=== PATIENT | male | born 1970 | race Two or more races ===

== ENCOUNTER 2019-09-19 04:45 | Inpatient (IN) | payer MEDICAID ==
[~2019-09-19] VITALS: Ht 154.9 cm; Wt 59.0 kg
[2019-09-19] MEDS ORDERED: LACT-96 GT (09:08)
[2019-09-19] MEDS ORDERED: ACET-868 GT ×2 (09:08)
[2019-09-19] MEDS ORDERED: OMEP-293 GT (09:08)
[2019-09-19] MEDS ORDERED: NA P133E RC (09:08)
[2019-09-19] MEDS ORDERED: ATOR10TA GT (09:08)
[2019-09-19] MEDS ORDERED: DOCU50LI GT (09:08)
[2019-09-19] MEDS ORDERED: LEVE100S GT (09:08)
[2019-09-19] MEDS ORDERED: SACC250C GT (09:08)
[2019-09-19] MEDS ORDERED: LORA10TA7 GT (09:08)
[2019-09-19] MEDS ORDERED: PIPE3.376 IV (09:08)
[2019-09-19] MEDS ORDERED: CALC500T52 GT (09:08)
[2019-09-19] MEDS ORDERED: METO25TA20 GT (09:08)
[2019-09-19] MEDS ORDERED: MAGN400O6 GT (09:08)
[2019-09-19] MEDS ORDERED: VIT500LI GT (09:08)
[2019-09-19] MEDS ORDERED: PANT40SU2 GT (09:08)
[2019-09-19] MEDS ORDERED: ACET-2605 GT (09:08)
[2019-09-19] MEDS ORDERED: ALBU2.5V38 IH (09:08)
[2019-09-19] MEDS ORDERED: MULT-447 GT (09:08)
[2019-09-19] MEDS ORDERED: FERR300L GT (09:08)
[2019-09-19] MEDS ORDERED: FOLI0.8T GT (09:08)
[2019-09-19] MEDS ORDERED: CHLO473M5 MM (09:08)
[2019-09-19] MEDS ORDERED: BISA10SU11 RC (09:08)
[2019-09-19] MEDS ORDERED: IPRA3AMP23 IH (09:08)
--- NOTE | 2019-09-19 09:40 | NUR ---
DR CANTU AT BEDSIDE
--- NOTE | 2019-09-19 09:48 | NUR ---
ROOM 311-1 NURSE: LEWIS
[2019-09-19] MEDS ORDERED: MAG HYDROX/AL HYDROX/SIMETH 30 ML UDC PO PRN (10:00)
[2019-09-19] MEDS ORDERED: MAGNESIUM HYDROXIDE 30 ML UDC PO PRN (10:00)
[2019-09-19] MEDS ORDERED: BISACODYL SUPP (10 MG) 10 MG/SUPP.RECT SUPP.RECT RC PRN (10:00)
[2019-09-19] MEDS ORDERED: ONDANSETRON HCL/PF 4 MG/2 ML VIAL IVP PRN (10:00)
[2019-09-19] MEDS ORDERED: ZOLPIDEM TARTRATE 5 MG TABLET PO PRN (10:00)
[2019-09-19] MEDS ORDERED: ALBUTEROL FS 2.5 MG/3 ML VIAL.NEB IH PRN (10:00)
[2019-09-19] MEDS ORDERED: IPRATROPIUM NEB FS 0.5 MG/2.5 ML AMPUL.NEB NEB PRN (10:00)
[2019-09-19] MEDS ORDERED: ACETAMINOPHEN 325 MG TABLET PO PRN (10:00)
[2019-09-19] MEDS ORDERED: Z GUARD REMEDY 2 OZ OINT TP PRN (10:00)
[2019-09-19] MEDS ORDERED: HYDROCODONE/APAP 5/325MG 1 EACH TABLET PO PRN (10:00)
[2019-09-19 10:09] LABS: APPEARANCE,URINE SLIGHTLY CLOUDY (CLEAR); COLOR,URINE YELLOW (YELLOW)
[2019-09-19 10:10] LABS: BILIRUBIN,URINE NEGATIVE (NEGATIVE); BLOOD, URINE TRACE Ery/uL (NEGATIVE); KETONES,URINE NEGATIVE (NEGATIVE); LEUKOCYTE ESTERASE ,URINE TRACE (NEGATIVE); NITRITE, URINE NEGATIVE (NEGATIVE); PROTEIN,URINE TRACE mg/dl (NEGATIVE); UGLUCOSE NEGATIVE (NEGATIVE); UROBILINOGEN,URINE 0.2 EU/dL (0.2)
[2019-09-19 10:11] LABS: BACTERIA,URINE None seen /HPF (None Seen); RBC,URINE 0-3 /HPF (0-2); SQUAMOUS EPITHELIAL CELL,UR None Seen /HPF (None Seen); WBC,URINE 15-20 /HPF (0-3); YEAST,URINE Many /HPF (None Seen)
--- NOTE | 2019-09-19 10:21 | NUR ---
REPORT GIVEN TO LEWIS OF TELE UNIT
[2019-09-19 11:00] LABS: CALCIUM, SERUM 9.2 mg/dL (8.5-10.1); CREATININE 0.9 mg/dL (0.6-1.3); POTASSIUM 3.9 mmol/L (3.5-5.1)
[2019-09-19 11:13] LABS: ALBUMIN 2.5 g/dL (3.4-5.0); BILIRUBIN,TOTAL 0.2 mg/dL (0.2-1.0); TOTAL PROTEIN, SERUM 7.5 g/dL (6.4-8.2)
[2019-09-19 11:31] LABS: BASOPHILS % (AUTO) 1.8 % (0.0-2.0); EOSINOPHILS % (AUTO) 2.1 % (0.0-6.0); HEMATOCRIT 28 % (39-51); HEMOGLOBIN 8.7 g/dL (13.5-17.5); LYMPHOCYTES % (AUTO) 16.1 % (20.0-44.0); MEAN CORPUSCULAR HGB CONC 31 g/dl (31.0-36.0); MEAN CORPUSCULAR VOLUME 90 fL (80-96); MONOCYTES % (AUTO) 6.1 % (2.0-12.0); NEUTROPHILS # (AUTO) 7.8 /CMM (1.8-8.9); NEUTROPHILS % (AUTO) 73.9 % (43.0-81.0); PLATELET COUNT (AUTO) 406 /CMM (150-450); RED BLOOD CELL COUNT(AUTO) 3.07 MIL/uL (4.5-6.0); WHITE BLOOD COUNT (AUTO) 10.6 K/uL (4.3-11.0)
[2019-09-19 11:32] LABS: BASOPHILS # (AUTO) 0.2 /CMM (0.0-0.2); LYMPHOCYTES # (AUTO) 1.7 /CMM (0.8-4.8); MONOCYTES # (AUTO) 0.6 /CMM (0.1-1.30)
[2019-09-19] MEDS ORDERED: FEE PK DOSING 1 MIN EA MC ONE (11:44)
[2019-09-19 12:00] VITALS: BP 103/58
[2019-09-19] MEDS ORDERED: VANCOMYCIN 1 GM in IV D5W 250 ML IV ONE (12:00)
--- NOTE | 2019-09-19 12:00 | NUR ---
rn note received pt on gurney, obtunded, sr 96 on telemetry, on t piece oxygen 5 l/min, rr22, saturation 99%, bp 103/58 mmhg, with thick joyce color secretion upon suction, no fever, g tube clamped, RAC iv intact, left ac iv intact. paul draining yellow urine via gravity. multiple scars and r hip deep wound foul smelly discharge, scrotal and sacral excoriation/MASD, upper and lower extremity contractures. will carry out admitting orders, safety measures.
[2019-09-19] MEDS: FERROUS SULFATE UDC 300 MG/5 ML UDC GT SCH ×2 (12:41→16:53)
[2019-09-19] MEDS: IV NS 0.9% 1,000 ML IV PRN (12:42)
[2019-09-19] MEDS: LEVETIRACETAM SOL (5 ML) 100 MG/ML UDC GT SCH ×2 (12:42→22:47)
[2019-09-19] MEDS ORDERED: MEROPENEM 1 G in IV NS 0.9% 100 ML IV ONE (13:00)
[2019-09-19 14:30] VITALS: BP 113/73
--- NOTE | 2019-09-19 14:30 | NUR ---
rn note around 1415 pt on cool aerosol, 8 l/min, became tachypneic, rr 32-34, shallow breaths, temp 98.0, saturation drops to 85-90%, upon suction it goes up for a while and then drops again, dr alana bradford, he ordered to place pt on mech vent, and do ABG. will carry out and monitor further.
--- NOTE | 2019-09-19 14:50 | NUR ---
RT PLACED PT ON [facility] VENT POST ABG RESULTS PER MD ORDER. TAQUERIA CHIN NOTIFIED AND AWARE. VENT SETTINGS: AC 14, VT 500, 40%, +5. PIPELAYING FITTER DONE. PIPELAYING FITTER DONE. ALARMS ON AND FUNCTIONING PROPERLY. RESPIRATIONS EVEN AND UNLABORED. VENT PLUGGED INTO RED OUTLET. SUCTIONED LARGE AMOUNTS OF THICK, WHITE SECRETIONS. NO SOB OR SIGNS OF DISTRESS NOTED AT THIS TIME. WILL CONTINUE TO MONITOR THE PATIENT CLOSELY FOR ANY CHANGES. Addendum: 09/19/19 at 1811 by YVAN GALVEZ RT Amended: Links added.
[2019-09-19 14:53] LABS: ABG BASE EXCESS 1.3 mmol/L; ABG OXYGEN SATURATION 86.2 % (92.0-98.5); ABG PCO2 49.5 mmHg (35.0-45.0); ABG PH 7.357 (7.350-7.450); ABG PO2 56.4 mmHg (75.0-100.0); AaDO2 171.9 mmHg; COHb 0.2 % (0.5-1.5); MetHb 0.5 % (0.0-1.5); O2Hb 85.6 % (94.0-97.0); SITE, ABG Right Radial; VENT MODE, BG CA 40%
--- NOTE | 2019-09-19 14:55 | NUR ---
rn note ABG resulted and per RT Catarino he will report to dr Rivas. Dr James notified with results. no new orders at this time, pt stable.
[2019-09-19 16:00] VITALS: BP 114/72
[2019-09-19] MEDS: VANCOMYCIN 0.75 GM in IV D5W 250 ML IV SCH (16:51)
[2019-09-19] MEDS: METOPROLOL TARTRATE 25 MG TABLET GT SCH (16:53)
--- NOTE | 2019-09-19 17:42 | NUR ---
rn note per COLLEEN SWAN TO CHANGE MUHAMMAD, AND SEND NEW URINE CULTURE, BUT ACCORDING TO REPORT FROM [facility], MUHAMMAD WAS CHANGED TODAY 09/19/19 BEFORE SENDING THE PT TO [facility]. SPOKE WITH ABUNDIO SWAN, AND TOLD HER THAT, NO NEED TO CHANGE MUHAMMAD.
[2019-09-19] MEDS: JEVITY 1.2 CAL 1,000 ML BOTTLE GT PRN (17:44)
[2019-09-19 20:00] VITALS: BP 94/56
--- NOTE | 2019-09-19 20:15 | NUR ---
RN NOTES RECEIVED PATIENT, EYES OPEN, NO SIGNS OF ACUTE RESPIRATORY DISTRESS NOTED, VENT SETTINGS TOLERATING WELL, NO SIGNS OF PAIN OR DISCOMFORT AT THIS TIME, NO FACIAL GRIMACING NOTED, ASPIRATION PRECAUTION EMPHASIZED, ORAL CARE DONE, SUCTIONED SECRETIONS, REPOSITIONED FOR COMFORT, IV ACCESS INTACT AND PATENT, MU[place] CATHETER INTACT AND PATENT DRAINING TO A YELLOW URINE OUTPUT, NO SEDIMENTS NOTED, KEPT CLEAN AND DRY. ALL NEEDS ANTICIPATED. WILL MONITOR ACCORDINGLY.
[2019-09-19 20:16] VITALS: BP 94/56
[2019-09-19] MEDS: ATORVASTATIN 10 MG TABLET GT SCH (22:47)
[2019-09-19] MEDS: MEROPENEM 1 G in IV NS 0.9% 100 ML IV SCH (22:48)
[2019-09-19] MEDS: CHLORHEXIDINE GLUCONATE 15 ML UDC MM SCH (22:48)
[2019-09-20] VITALS (7 sets, daily range): BP systolic 117–152; BP diastolic 63–76
[2019-09-20] MEDS: VANCOMYCIN 0.75 GM in IV D5W 250 ML IV SCH ×3 (00:01→16:10)
[2019-09-20] MEDS: MEROPENEM 1 G in IV NS 0.9% 100 ML IV SCH ×3 (04:27→21:38)
--- NOTE | 2019-09-20 06:15 | NUR ---
RN NOTES PATIENT, OPENS EYES , NO SIGNS OF ACUTE RESPIRATORY DISTRESS NOTED, VENT SETTINGS TOLERATING WELL, NO SIGNS OF PAIN OR DISCOMFORT AT THIS TIME, NO FACIAL GRIMACING NOTED, ASPIRATION PRECAUTION EMPHASIZED, ORAL CARE DONE, SUCTIONED SECRETIONS, REPOSITIONED FOR COMFORT, IV ACCESS INTACT AND PATENT, [place] CATHETER INTACT AND PATENT DRAINING TO A YELLOW URINE OUTPUT, NO SEDIMENTS NOTED, KEPT CLEAN AND DRY. ALL NEEDS ANTICIPATED. WILL ENDORSE TO AM NURSE FOR CONTINUITY OF CARE.
--- NOTE | 2019-09-20 07:20 | NUR ---
FLIGHT ENGINEER HELICOPTER OPENING NOTE RECEIVED REPORT FROM [facility] SHIFT NURSE. PT ASLEEP IN BED, ON VENT, TOLERATING SETTINGS WELL, RESPIRATIONS EVEN, UNLABORED, NO SIGNS OF RESPIRATORY DISTRESS NOTED. ON TELE MONITOR SINUS RHYTHM HR 76. MU[place] CATHETER INTACT, PATENT, DRAINING CLEAR YELLOW URINE. JEVITY INFUSING AT 60CC/HR, TOLERATING FEEDING WELL, NO RESIDUAL NOTED. IV SITE ON RIGHT AC G18 INTACT, PATENT. IV SITE ON LEFT AC G22 PATENT, INTACT, WITH HEP LOCK IN PLACE. BED IN LOW POSITION, LOCKED, CALL LIGHT WITHIN REACH.
[2019-09-20 07:27] LABS: CALCIUM, SERUM 9.1 mg/dL (8.5-10.1); CREATININE 0.9 mg/dL (0.6-1.3); PHOSPHORUS 2.1 mg/dL (2.5-4.9); POTASSIUM 3.6 mmol/L (3.5-5.1)
[2019-09-20 07:32] LABS: THYROID STIMULATING HORMONE 3.866 uIU/mL (0.358-3.74)
[2019-09-20 07:34] LABS: BASOPHILS # (AUTO) 0.1 /CMM (0.0-0.2); BASOPHILS % (AUTO) 0.6 % (0.0-2.0); EOSINOPHILS % (AUTO) 1.4 % (0.0-6.0); HEMATOCRIT 25 % (39-51); HEMOGLOBIN 8.2 g/dL (13.5-17.5); LYMPHOCYTES # (AUTO) 1.5 /CMM (0.8-4.8); LYMPHOCYTES % (AUTO) 14.6 % (20.0-44.0); MEAN CORPUSCULAR HGB CONC 33 g/dl (31.0-36.0); MEAN CORPUSCULAR VOLUME 89 fL (80-96); MONOCYTES # (AUTO) 0.7 /CMM (0.1-1.30); MONOCYTES % (AUTO) 6.7 % (2.0-12.0); NEUTROPHILS # (AUTO) 8.1 /CMM (1.8-8.9); NEUTROPHILS % (AUTO) 76.7 % (43.0-81.0); PLATELET COUNT (AUTO) 406 /CMM (150-450); RED BLOOD CELL COUNT(AUTO) 2.78 MIL/uL (4.5-6.0); WHITE BLOOD COUNT (AUTO) 10.6 K/uL (4.3-11.0)
[2019-09-20] MEDS: FERROUS SULFATE UDC 300 MG/5 ML UDC GT SCH ×3 (08:38→17:25)
[2019-09-20] MEDS: DOCUSATE SODIUM LIQ 100 MG/10 ML UDC GT SCH (08:38)
[2019-09-20] MEDS: CALCIUM CARBONATE (1250) 500 MG TABLET GT SCH (08:38)
[2019-09-20] MEDS: METOPROLOL TARTRATE 25 MG TABLET GT SCH ×2 (08:38→17:26)
[2019-09-20] MEDS: CHLORHEXIDINE GLUCONATE 15 ML UDC MM SCH ×2 (08:38→21:38)
[2019-09-20] MEDS: PANTOPRAZOLE 40 MG/PACK PACK GT SCH (08:38)
[2019-09-20] MEDS: LEVETIRACETAM SOL (5 ML) 100 MG/ML UDC GT SCH ×2 (08:38→22:06)
[2019-09-20] MEDS: MULTIVITAMINS,THERAGRAN 1 UDTAB TABLET PO SCH (08:39)
--- NOTE | 2019-09-20 09:15 | NUR ---
WOUND CARE CONSULT: PT PRESENTS WITH SEVERELY CONTRACTED EXTREMITIES WITH MULTIPLE SKIN ISSUES INCLUDING RT HIP STAGE 4 ULCER, FRAGILE SCARRING TO SACRUM, GROIN RASH AND LEFT FOOT DRY WOUND/SCAB, ALL PRESENT ON ADMISSION. RECOMMEND DPM AND SURGICAL CONSULTS. DR LUNA AWARE OF CONSULT REQUESTS. FIRST STEP LOW AIRLOSS MATTRESS ON ORDER. WILL SEE PRN. RECOMMENDATIONS MADE FOR SKIN PROTECTION. DISCUSSED WITH NURSING STAFF. DEFER TO SURGICAL TEAM FOR WOUND TREATMENT PLAN. MD IN AGREEMENT WITH PLAN OF CARE. Addendum: 09/20/19 at 0918 by COLT CROWLEY WNDNU Amended: Links added.
[2019-09-20] MEDS: ACETAMINOPHEN 325 MG TABLET PO PRN ×2 (09:42→17:27)
[2019-09-20] MEDS: ALBUTEROL FS 2.5 MG/3 ML VIAL.NEB IH SCH ×5 (11:28→23:09)
[2019-09-20] MEDS: IPRATROPIUM NEB FS 0.5 MG/2.5 ML AMPUL.NEB NEB SCH ×5 (11:28→23:09)
[2019-09-20] MEDS: ACETYLCYSTEINE 10% SOLN 400 MG/4 ML VIAL NEB SCH ×3 (11:28→23:09)
--- NOTE | 2019-09-20 11:52 | NUR ---
RECEIVED CALL FROM LAB, C-DIF RESULTED POSITIVE. SPOKE WITH AYNELIS
[2019-09-20] MEDS ORDERED: NEUTRA PHOS 1 POWD.PACKET NG ONE (13:00)
[2019-09-20] MEDS: NYSTATIN TOP POWDER 15 GM BOTTLE TP SCH ×2 (13:10→17:34)
[2019-09-20] MEDS: DAKINS QUARTER STRENGTH (0.125%) 480 ML BOTTLE TOP SCH (13:10)
[2019-09-20] MEDS: IV NS 0.9% 1,000 ML IV PRN (14:05)
--- NOTE | 2019-09-20 17:24 | NUR ---
RECEIVED CALL FROM KEISHA FROM [facility] WITH RESULTS: MRSA OF BOTH NARES.
--- NOTE | 2019-09-20 19:29 | NUR ---
ANATOMIC PATHOLOGY MANAGER CLOSING NOTE PT ASLEEP IN BED, ON VENT, TOLERATING SETTINGS WELL, RESPIRATIONS EVEN, UNLABORED, NO SIGNS OF RESPIRATORY DISTRESS NOTED. ON TELE MONITOR SINUS RHYTHM HR 70. MU[place] CATHETER INTACT, PATENT, DRAINING CLOUDY YELLOW URINE. IV SITE ON RIGHT AC G18 INTACT, PATENT. IV SITE ON LEFT AC G22 PATENT, INTACT, WITH HEP LOCK IN PLACE. BED IN LOW POSITION, LOCKED, CALL LIGHT WITHIN REACH. TURNED AND REPOSITIONED PT THROUGHOUT SHIFT EVERY 2 HOURS, PROVIDED SAFETY AND COMFORT, ALL DUE MEDS GIVEN. WILL ENDORSE TO [facility] SHIFT NURSE.
--- NOTE | 2019-09-20 19:45 | NUR ---
ELECTRIC RANGE SERVICER OPENING NOTES PATIENT ON MECHANICAL VENT. TOLERATING SETTINGS WELL. NO S/S OF ACUTE RESPIRATORY DISTRESS OR SOB. TELEMONITOR- SINUS RHYTHM, HR: 63. MUHAMMAD CATH PRESENT, INTACT & PATENT. GT PRESENT, FEEDING TURNED OFF SINCE 1600. IV PRESENT ON LEFT AC, SIZE 22, INTACT & PATENT, HEP LOCKED. IV ON RIGHT AC, SIZE 18, INTACT & PATENT WITH NS AT 75ML/HR. BED SET IN LOWEST POSITION & LOCKED, SET IN SEMI-ROJO'S POSITION. WILL CONTINUE TO MONITOR.
[2019-09-20] MEDS: JEVITY 1.2 CAL 1,000 ML BOTTLE GT PRN (21:01)
[2019-09-20] MEDS: ATORVASTATIN 10 MG TABLET GT SCH (22:06)
--- NOTE | 2019-09-20 23:20 | NUR ---
PT RCVD TRACH'D ON MECHANICAL VENT WITH CHARTED SETTINGS. PT FUNMILAYO TX WELL. SX DONE. PT TRACH IS PATENT AND SECURE. VENT ALARMS APPEAR TO BE FUNCTIONING PROPERLY. AMBU BAG AT BEDSIDE. VENT PLUGGED INTO RED OUTLET. NO SOB NOTED. Addendum: 09/20/19 at 2320 by SHILPI PURDY RT Amended: Links added.
[2019-09-21] VITALS: BP 123/65
[2019-09-21 00:01] VITALS: BP_SYST 118; BP_SYST 123; BP_DIAS 65; BP_DIAS 68
[2019-09-21] MEDS: VANCOMYCIN 0.75 GM in IV D5W 250 ML IV SCH ×3 (00:28→15:51)
[2019-09-21] MEDS: ALBUTEROL FS 2.5 MG/3 ML VIAL.NEB IH SCH ×6 (03:01→23:10)
[2019-09-21] MEDS: IPRATROPIUM NEB FS 0.5 MG/2.5 ML AMPUL.NEB NEB SCH ×6 (03:01→23:10)
[2019-09-21 04:00] VITALS: BP 143/84
[2019-09-21] MEDS: MEROPENEM 1 G in IV NS 0.9% 100 ML IV SCH ×3 (05:40→20:42)
[2019-09-21 06:31] LABS: BASOPHILS % (AUTO) 0.4 % (0.0-2.0); EOSINOPHILS % (AUTO) 1.5 % (0.0-6.0); HEMATOCRIT 24 % (39-51); HEMOGLOBIN 7.9 g/dL (13.5-17.5); LYMPHOCYTES # (AUTO) 1.2 /CMM (0.8-4.8); LYMPHOCYTES % (AUTO) 10.1 % (20.0-44.0); MEAN CORPUSCULAR HGB CONC 32 g/dl (31.0-36.0); MEAN CORPUSCULAR VOLUME 89 fL (80-96); MONOCYTES # (AUTO) 0.7 /CMM (0.1-1.30); MONOCYTES % (AUTO) 6.5 % (2.0-12.0); NEUTROPHILS # (AUTO) 9.3 /CMM (1.8-8.9); NEUTROPHILS % (AUTO) 81.5 % (43.0-81.0); PLATELET COUNT (AUTO) 400 /CMM (150-450); RED BLOOD CELL COUNT(AUTO) 2.73 MIL/uL (4.5-6.0); WHITE BLOOD COUNT (AUTO) 11.4 K/uL (4.3-11.0)
--- NOTE | 2019-09-21 06:36 | NUR ---
BREAD RACKER CLOSING NOTES PATIENT ON VENT. TOLERATING SETTINGS WELL. NO S/S OF ACUTE RESPIRATORY DISTRESS. TELEMONITOR READING SINUS RHYTHM, HR 61. TUBE FEEDING WITH JEVITY, SET AT 60 CC/HR. IV ON RIGHT AC, SIZE 18, INTACT & PATENT, RUNNING MERREM AT 33 CC/HR. BED SET IN LOWEST POSITION & LOCKED. WILL ENDORSE TO DAY SHIFT NURSE TO FOLLOW PLAN OF CARE.
[2019-09-21 06:49] LABS: CREATININE 0.8 mg/dL (0.6-1.3); MAGNESIUM 2.1 mg/dL (1.8-2.4); PHOSPHORUS 4.2 mg/dL (2.5-4.9); POTASSIUM 3.5 mmol/L (3.5-5.1)
[2019-09-21 08:00] VITALS: BP 137/73
--- NOTE | 2019-09-21 08:00 | NUR ---
MS RN Opening Notes Received pt iin bed. Awake, non verbal. obtunded. No cardiac or respiratory distress noted. Checked patency of gtube. Gtube patent. No gastric residual noted Administered all due meds this AM, tolerated well. no ase noted. FC patent, draining with clear, yellow urine. ON contact isolation.
[2019-09-21] MEDS: ACETYLCYSTEINE 10% SOLN 400 MG/4 ML VIAL NEB SCH ×3 (08:09→23:10)
[2019-09-21] MEDS: CALCIUM CARBONATE (1250) 500 MG TABLET GT SCH (08:15)
[2019-09-21] MEDS: DOCUSATE SODIUM LIQ 100 MG/10 ML UDC GT SCH (08:15)
[2019-09-21] MEDS: PANTOPRAZOLE 40 MG/PACK PACK GT SCH (08:17)
[2019-09-21] MEDS: FERROUS SULFATE UDC 300 MG/5 ML UDC GT SCH ×3 (08:17→16:20)
[2019-09-21] MEDS: CHLORHEXIDINE GLUCONATE 15 ML UDC MM SCH ×2 (08:17→20:42)
[2019-09-21] MEDS: LEVETIRACETAM SOL (5 ML) 100 MG/ML UDC GT SCH ×2 (08:17→20:42)
[2019-09-21] MEDS: MULTIVITAMINS,THERAGRAN 1 UDTAB TABLET PO SCH (08:17)
[2019-09-21] MEDS: METOPROLOL TARTRATE 25 MG TABLET GT SCH ×2 (08:19→16:20)
[2019-09-21] MEDS: DAKINS QUARTER STRENGTH (0.125%) 480 ML BOTTLE TOP SCH (08:24)
[2019-09-21] MEDS: NYSTATIN TOP POWDER 15 GM BOTTLE TP SCH ×2 (08:24→17:01)
[2019-09-21] MEDS: MUPIROCIN OINT 2% 22 GM TUBE SCH ×2 (09:23→20:43)
--- NOTE | 2019-09-21 15:52 | NUR ---
RT PATIENT RECEIVED TRACH'D ON [facility] VENT WITH SETTINGS PER MD. MANAGER MONEY DONE. SPARE TRACH AND AMBU BAG AT HEAD OF BED. ALARMS ON AND WORKING PROPERLY. VENT PLUGGED INTO RED OUTLET. TRACH PATENT AND SECURE. TX'S GIVEN ORDERED. NO ADVERSE REACTIONS OBSERVED. SUCTIONED AND MONITORED PRN. NO SOB OR SIGNS OF DISTRESS NOTED. WILL CONTINUE TO MONITOR FOR ANY CHANGES. Addendum: 09/21/19 at 1800 by YVAN GALVEZ RT Amended: Links added.
[2019-09-21 16:00] VITALS: BP 138/88
[2019-09-21] MEDS: IV NS 0.9% 1,000 ML IV PRN (17:01)
[2019-09-21] MEDS: VANCOMYCIN HCL 125 MG/2.5 ML ORAL.SUSP PO SCH (17:01)
--- NOTE | 2019-09-21 18:45 | NUR ---
Tele/RN - End of shift summary Patient is noncommunicative, no s/s of pain, afebrile, not in any form of distress, trach and vent dependent with Portex 7 secured and intact, vent settings AC14, TV500, FiO2 40%, PEEP 5, tolerated well. Tele shows SR-ST. Patient for CPAP trial tomorrow. Contact enteric precautions maintained for MRSA/Cdiff. Will continue with current medical management and endorse to night nurse for continuity of care.
--- NOTE | 2019-09-21 19:39 | NUR ---
HOUSEMAN OPENING NOTES PATIENT ON VENT. TOLERATING SETTINGS WELL. NO S/S OF ACUTE RESPIRATORY DISTRESS. TUBE FEEDING CURRENTLY OFF FROM [id number]. IV ON LEFT AC, SIZE 22, INTACT & PATENT, HEP LOCKED. IV ON RIGHT AC, SIZE 18, INTACT & PATENT WITH NS RUNNING AT 75 CC/HR. MU[place] CATH PRESENT, INTACT & PATENT, WITH 350 CC OF URINE, CLEAR AND YELLOW. BED SET IN LOWEST POSITION AND LOCKED. UPPER SIDE RAILS RAISED. TELE MONITOR READING SINUS TACH, HR: 125-130. WILL CONTINUE TO MONITOR.
[2019-09-21 20:00] VITALS: BP 138/80
[2019-09-21] MEDS: ACETAMINOPHEN 325 MG TABLET PO PRN (20:01)
--- NOTE | 2019-09-21 20:20 | NUR ---
PT RCVD TRACH'D ON MECHANICAL VENT WITH CHARTED SETTINGS. PT FUNMILAYO TX WELL. SX DONE. PT TRACH IS PATENT AND SECURE. VENT ALARMS APPEAR TO BE FUNCTIONING PROPERLY. AMBU BAG AT BEDSIDE. VENT PLUGGED INTO RED OUTLET. NO SOB NOTED. Addendum: 09/21/19 at 2021 by SHILPI PURDY RT Amended: Links added.
--- NOTE | 2019-09-21 20:30 | NUR ---
RN NOTES NOTICED HEART RATE WAS 130,, CHECKED PT. TEMPERATURE 103- GAVE TYLENOL 650MG GT AND COLD COMPRESSION WAS RENDERED
[2019-09-21] MEDS: ATORVASTATIN 10 MG TABLET GT SCH (21:31)
[2019-09-21] MEDS: JEVITY 1.2 CAL 1,000 ML BOTTLE GT PRN (21:40)
--- NOTE | 2019-09-21 21:42 | NUR ---
RN NOTES AFTER GIVING TYLENOL, PATIENT TEMP. WENT DOWN TO 98.7
[2019-09-22] VITALS: BP 127/68
[2019-09-22] MEDS: VANCOMYCIN HCL 125 MG/2.5 ML ORAL.SUSP PO SCH ×4 (00:20→18:31)
[2019-09-22] MEDS: VANCOMYCIN 0.75 GM in IV D5W 250 ML IV SCH ×2 (00:20→08:00)
[2019-09-22] MEDS: ALBUTEROL FS 2.5 MG/3 ML VIAL.NEB IH SCH ×5 (03:14→20:20)
[2019-09-22] MEDS: IPRATROPIUM NEB FS 0.5 MG/2.5 ML AMPUL.NEB NEB SCH ×5 (03:14→20:20)
[2019-09-22 04:00] VITALS: BP 111/74
[2019-09-22] MEDS: MEROPENEM 1 G in IV NS 0.9% 100 ML IV SCH ×2 (05:09→13:07)
--- NOTE | 2019-09-22 06:49 | NUR ---
GRAINING PRESS OPERATOR CLOSING NOTES PATIENT TOLERATING VENT SETTINGS WELL. NO S/S OF ACUTE RESPIRATORY DISTRESS. TELE MONITOR READING SINUS RHYTHM, HR: 93. IV ON RIGHT AC, SIZE 18, INTACT & PATENT, MERREM RUNNING AT 33.33 ML/HR. BED SET IN LOWEST POSITION & LOCKED, SIDE RAILS UP X2. WILL ENDORSE TO DAY SHIFT NURSE TO FOLLOW PLAN OF CARE.
[2019-09-22 07:18] LABS: BASOPHILS # (AUTO) 0.1 /CMM (0.0-0.2); BASOPHILS % (AUTO) 0.6 % (0.0-2.0); EOSINOPHILS % (AUTO) 1.2 % (0.0-6.0); HEMATOCRIT 26 % (39-51); HEMOGLOBIN 8.5 g/dL (13.5-17.5); LYMPHOCYTES # (AUTO) 1.2 /CMM (0.8-4.8); LYMPHOCYTES % (AUTO) 10.7 % (20.0-44.0); MEAN CORPUSCULAR HGB CONC 33 g/dl (31.0-36.0); MEAN CORPUSCULAR VOLUME 89 fL (80-96); MONOCYTES # (AUTO) 0.7 /CMM (0.1-1.30); MONOCYTES % (AUTO) 6.4 % (2.0-12.0); NEUTROPHILS # (AUTO) 8.8 /CMM (1.8-8.9); NEUTROPHILS % (AUTO) 81.1 % (43.0-81.0); PLATELET COUNT (AUTO) 400 /CMM (150-450); RED BLOOD CELL COUNT(AUTO) 2.89 MIL/uL (4.5-6.0); WHITE BLOOD COUNT (AUTO) 10.8 K/uL (4.3-11.0)
--- NOTE | 2019-09-22 07:20 | NUR ---
RN OPENING NOTES RECEIVED PATIENT IN STABLE CONDITION. PATIENT IS OBTUNDED, ON MECH VENT, SETTINGS ORDERED. ON TELE, SR 74. IV ACCESS INTACT AND PATENT. GTUBE IN PLACE, ON FEEDING @ 60 ML/HR, TOLERATING WELL. [place] CATH IN PLACE DRAINING CLEAR YELLOW URINE. KEPT PATIENT SAFE AND COMFORTABLE. BED IN LOW LOCKED POSITION. SIDERAILS UP, CALL LIGHT IN REACH. WILL CONTINUE TO MONITOR ACCORDINGLY.
[2019-09-22 07:38] LABS: CREATININE 0.8 mg/dL (0.6-1.3); MAGNESIUM 2.2 mg/dL (1.8-2.4); PHOSPHORUS 3.7 mg/dL (2.5-4.9); POTASSIUM 3.8 mmol/L (3.5-5.1)
[2019-09-22] MEDS: ACETYLCYSTEINE 10% SOLN 400 MG/4 ML VIAL NEB SCH ×2 (08:40→17:35)
[2019-09-22] MEDS: PANTOPRAZOLE 40 MG/PACK PACK GT SCH (08:45)
[2019-09-22] MEDS: MULTIVITAMINS,THERAGRAN 1 UDTAB TABLET PO SCH (08:45)
[2019-09-22] MEDS: CALCIUM CARBONATE (1250) 500 MG TABLET GT SCH (08:45)
[2019-09-22] MEDS: CHLORHEXIDINE GLUCONATE 15 ML UDC MM SCH ×2 (08:46→21:01)
[2019-09-22] MEDS: LEVETIRACETAM SOL (5 ML) 100 MG/ML UDC GT SCH ×2 (08:46→21:02)
[2019-09-22] MEDS: METOPROLOL TARTRATE 25 MG TABLET GT SCH ×2 (08:46→18:32)
[2019-09-22] MEDS: MUPIROCIN OINT 2% 22 GM TUBE SCH ×2 (08:47→21:11)
[2019-09-22] MEDS: DOCUSATE SODIUM LIQ 100 MG/10 ML UDC GT SCH (08:47)
[2019-09-22] MEDS: NYSTATIN TOP POWDER 15 GM BOTTLE TP SCH ×2 (08:47→18:33)
[2019-09-22] MEDS: FERROUS SULFATE UDC 300 MG/5 ML UDC GT SCH ×3 (08:47→18:31)
[2019-09-22] MEDS: DAKINS QUARTER STRENGTH (0.125%) 480 ML BOTTLE TOP SCH (08:50)
--- NOTE | 2019-09-22 09:18 | NUR ---
rn notes Vanco trough 26. notified [facility] pharmacist, held Vancomycin scheduled at 0800.
[2019-09-22 14:30] LABS: ABG BASE EXCESS -0.2 mmol/L; ABG OXYGEN SATURATION 93.1 % (92.0-98.5); ABG PCO2 34.2 mmHg (35.0-45.0); ABG PH 7.455 (7.350-7.450); ABG PO2 72.4 mmHg (75.0-100.0); AaDO2 173.5 mmHg; COHb 0.3 % (0.5-1.5); MetHb 0.5 % (0.0-1.5); O2Hb 92.4 % (94.0-97.0); SITE, ABG Right Radial; VENT MODE, BG CPAP PS12 40% +5
[2019-09-22 16:00] VITALS: BP 130/83
--- NOTE | 2019-09-22 18:00 | NUR ---
rn notes anselmo ndiaye np, infectious disease at bedside. patient gtwm=[id number], and infectious disease TAG WRITER is aware. per anselmo, "i just ordered cultures for blood, urine and resp"."No need for tylenol or cooling measures for now till cultures is collected.".
[2019-09-22] MEDS: SULFAMETH/TRIMETH 800/160 MG 1 UDTAB TABLET GT SCH (18:31)
[2019-09-22] MEDS: IV NS 0.9% 1,000 ML IV PRN (18:37)
--- NOTE | 2019-09-22 19:11 | NUR ---
rn closing notes patient in stable condition. all due medications given as ordered. turned and repositioned patient every 2hr as needed. wound care rendered. kept patient safe and comfortable. bed in low/mian dposition, siderails up, bed alarm on. call light in reach. endorsed to ELSY Tapia for mello.
--- NOTE | 2019-09-22 19:11 | NUR ---
urine collected called lab for pickle solution maker.
--- NOTE | 2019-09-22 19:15 | NUR ---
temp= 98.9. will monitor accordingly
--- NOTE | 2019-09-22 19:15 | NUR ---
GEAR SHAPER SET UP OPERATOR NOTES RECEIVED PT IN BED IN BED RESTING IN STABLE CONDITION. PT OBTUNDED. RESPIRATIONS EVEN AND UNLABORED WTIH NO S/S OF ACUTE DISTRESS OR SOB NOTED. PT NOTED WITH T-PIECE ON COOL AEROSOL. NO S/S OF PAIN AT THIS TIME. PT NOTED WITH RAC #18G PATENT AND INTACT INFUSING NS @75CC/HR. PT ALSO NOTED WITH LAC #22G SL. PT ALSO WITH NG TUBE PATENT AND INTACT. SAFETY MEASURES IN PLACE WITH BED IN LOWEST LOCKED POSITION WITH SIDE RAILS UP X2. CALL LIGHT WITHIN REACH. WILL CONTINUE TO MONITOR.
[2019-09-22 20:00] VITALS: BP 119/62
--- NOTE | 2019-09-22 21:00 | NUR ---
INSTRUCTION DEAN NOTES PT NOTED WITH ELEVATED TEMP, TYLENOL GIVEN WELL COOLING MEASURES. WILL CONTINUE TO MONITOR.
[2019-09-22] MEDS: ACETAMINOPHEN 325 MG TABLET PO PRN (21:01)
[2019-09-22 21:04] LABS: APPEARANCE,URINE CLEAR (CLEAR); BILIRUBIN,URINE NEGATIVE (NEGATIVE); BLOOD, URINE MODERATE Ery/uL (NEGATIVE); COLOR,URINE YELLOW (YELLOW); KETONES,URINE NEGATIVE (NEGATIVE); LEUKOCYTE ESTERASE ,URINE NEGATIVE (NEGATIVE); NITRITE, URINE NEGATIVE (NEGATIVE); PROTEIN,URINE TRACE mg/dl (NEGATIVE); UGLUCOSE NEGATIVE (NEGATIVE); UROBILINOGEN,URINE 0.2 EU/dL (0.2)
[2019-09-22] MEDS: ATORVASTATIN 10 MG TABLET GT SCH (21:11)
[2019-09-22 21:18] LABS: BACTERIA,URINE None seen /HPF (None Seen); SQUAMOUS EPITHELIAL CELL,UR Few /HPF (None Seen); WBC,URINE 0-2 /HPF (0-3)
--- NOTE | 2019-09-22 21:52 | NUR ---
RT NOTE PT RECEIVED TRACHED ON COOL AEROSOL @ 40%. AMBU BAG/BACK UP TRACH @ BEDSIDE. TX GIVEN, NO ADVERSE REACTIONS NOTED. SX DONE, TRACH SECURED AND PATENT. SPUTUM INDUCTION OBTAINED. WATER LEVEL GOOD. NO SOB NOTED AT THIS TIME. CONT. PULSE OX CONNECTED. WILL MONITOR T/O SHIFT. Addendum: 09/22/19 at 2152 by JENI ABAD RT Amended: Links added.
[2019-09-23] VITALS: BP 131/76
[2019-09-23] MEDS: IPRATROPIUM NEB FS 0.5 MG/2.5 ML AMPUL.NEB NEB SCH ×7 (00:11→22:37)
[2019-09-23] MEDS: ACETYLCYSTEINE 10% SOLN 400 MG/4 ML VIAL NEB SCH ×4 (00:11→22:37)
[2019-09-23] MEDS: ALBUTEROL FS 2.5 MG/3 ML VIAL.NEB IH SCH ×7 (00:12→22:37)
[2019-09-23] MEDS: VANCOMYCIN HCL 125 MG/2.5 ML ORAL.SUSP PO SCH ×4 (00:26→17:32)
[2019-09-23] MEDS: JEVITY 1.2 CAL 1,000 ML BOTTLE GT PRN (02:09)
[2019-09-23 04:00] VITALS: BP 115/73
--- NOTE | 2019-09-23 06:59 | NUR ---
DOOR FRAMER NOTES PT IN BED IN BED RESTING IN STABLE CONDITION. PT OBTUNDED. RESPIRATIONS EVEN AND UNLABORED WITH NO S/S OF ACUTE DISTRESS OR SOB NOTED THROUGHOUT SHIFT. PT NOTED WITH T-PIECE ON COOL AEROSOL. NO S/S OF PAIN AT THIS TIME. PT ON TELE MONITOR SHOWING SINUS RHYTHM AND 70S. PT NOTED WITH RAC #18G PATENT AND INTACT INFUSING NS @75CC/HR. PT ALSO NOTED WITH LAC #22G SL. PT ALSO WITH NG TUBE PATENT AND INTACT INFUSING JEVITY 1.2 @60CC/HR. PT FC CHANGED PER MD AND DRAINING WELL. PT KEPT CLEAN, DRY, AND COMFORTABLE. PT TURNED Q2 HOURS THROUGHOUT SHIFT. SAFETY MEASURES IN PLACE WITH BED IN LOWEST LOCKED POSITION WITH SIDE RAILS UP X2. CALL LIGHT WITHIN REACH. WILL ENDORSE TO ONCOMING NURSE FOR MALIK. Addendum: 09/23/19 at 0726 by FERNANDO SANCHEZ RN pt with gtube feeding not ng tube feeding.
[2019-09-23 07:43] LABS: BASOPHILS # (AUTO) 0.1 /CMM (0.0-0.2); BASOPHILS % (AUTO) 0.7 % (0.0-2.0); EOSINOPHILS % (AUTO) 2.1 % (0.0-6.0); HEMATOCRIT 28 % (39-51); HEMOGLOBIN 9.1 g/dL (13.5-17.5); LYMPHOCYTES # (AUTO) 1.5 /CMM (0.8-4.8); LYMPHOCYTES % (AUTO) 13.4 % (20.0-44.0); MEAN CORPUSCULAR HGB CONC 32 g/dl (31.0-36.0); MEAN CORPUSCULAR VOLUME 90 fL (80-96); MONOCYTES # (AUTO) 0.9 /CMM (0.1-1.30); MONOCYTES % (AUTO) 7.7 % (2.0-12.0); NEUTROPHILS # (AUTO) 8.4 /CMM (1.8-8.9); NEUTROPHILS % (AUTO) 76.1 % (43.0-81.0); PLATELET COUNT (AUTO) 445 /CMM (150-450); RED BLOOD CELL COUNT(AUTO) 3.13 MIL/uL (4.5-6.0)
[2019-09-23 07:45] LABS: CALCIUM, SERUM 9.5 mg/dL (8.5-10.1); CREATININE 0.8 mg/dL (0.6-1.3); MAGNESIUM 2.3 mg/dL (1.8-2.4); PHOSPHORUS 3.2 mg/dL (2.5-4.9); POTASSIUM 4.4 mmol/L (3.5-5.1)
--- NOTE | 2019-09-23 07:54 | NUR ---
CLASS A REGIONAL TRUCK DRIVER NOTES PATIENT RECEIVED RESTING INSIDE ROOM. OBTUNDED. NO ACUTE DISTRESS. T-PIECE ON COOL AEROSOL. CONTINUE ON TELE, MILKING WORKER IN PLACE, SR 80'S. GTF ONGOING ORDERED. MAINTAINED ASPIRATION PRECAUTION. [place] CATH IN PLACE WITH YELLOW URINE OUTPUT NOTED ON COLLECTING BAG. MAINTAINED ISOLATION PRECAUTIONS. SEIZURE PRECAUTIONS IN PLACE. WILL CONTINUE TO MONITOR. BED LOCKED AND IN LOW POSITION. SIDE RAILS UP X 3. CALL LIGHT WITHIN EASY REACH
[2019-09-23 08:00] VITALS: BP 146/72
[2019-09-23] MEDS: IV NS 0.9% 1,000 ML IV PRN ×2 (08:45→23:49)
[2019-09-23] MEDS: PANTOPRAZOLE 40 MG/PACK PACK GT SCH (08:47)
[2019-09-23] MEDS: CHLORHEXIDINE GLUCONATE 15 ML UDC MM SCH ×2 (08:47→21:31)
[2019-09-23] MEDS: FERROUS SULFATE UDC 300 MG/5 ML UDC GT SCH ×3 (08:47→17:32)
[2019-09-23] MEDS: METOPROLOL TARTRATE 25 MG TABLET GT SCH ×2 (08:47→17:31)
[2019-09-23] MEDS: MULTIVITAMINS,THERAGRAN 1 UDTAB TABLET PO SCH (08:47)
[2019-09-23] MEDS: DOCUSATE SODIUM LIQ 100 MG/10 ML UDC GT SCH (08:47)
[2019-09-23] MEDS: SULFAMETH/TRIMETH 800/160 MG 1 UDTAB TABLET GT SCH ×2 (08:47→21:30)
[2019-09-23] MEDS: CALCIUM CARBONATE (1250) 500 MG TABLET GT SCH (08:47)
[2019-09-23] MEDS: LEVETIRACETAM SOL (5 ML) 100 MG/ML UDC GT SCH ×2 (08:47→21:30)
[2019-09-23] MEDS: NYSTATIN TOP POWDER 15 GM BOTTLE TP SCH ×2 (08:48→17:33)
[2019-09-23] MEDS: DAKINS QUARTER STRENGTH (0.125%) 480 ML BOTTLE TOP SCH (08:48)
[2019-09-23] MEDS: MUPIROCIN OINT 2% 22 GM TUBE SCH ×2 (08:48→21:33)
[2019-09-23] MEDS ORDERED: VANCOMYCIN 0.75 GM in IV D5W 250 ML IV SCH (09:00)
[2019-09-23 16:00] VITALS: BP 118/73
--- NOTE | 2019-09-23 18:22 | NUR ---
INSURANCE UNDERWRITER SALES NOTES PATIENT RESTING INSIDE ROOM. OBTUNDED. NO ACUTE DISTRESS. T-PIECE ON COOL AEROSOL. CONTINUE ON TELE, LAUNDRY PRESSER IN PLACE, SR 81. MAINTAINED ASPIRATION PRECAUTIONS. [place] CATH IN PLACE WITH CLEAR YELLOW URINE OUTPUT ON COLLECTING BAG. WOUND TX DONE ORDERED AND PATIENT TOLERATED WELL. MAINTAINED ISOLATION PRECAUTIONS. SAFETY PRECAUTIONS IN PLACE. WILL ENDORSE TO INCOMING SHIFT FOR MALIK. BED LOCKED AND IN LOW POSITION. SIDE RAILS UP X 3. CALL LIGHT WITHIN EASY REACH.
--- NOTE | 2019-09-23 19:44 | NUR ---
HANDICRAFT OR HOBBY SHOP MANAGER NOTES RECEIVED PATIENT AWAKE IN BED WITH NO DISTRESS NOTED. CALL LIGHT WITHIN REACH. TRACK INTACT AND PATENT. GT INTACT AND PATENT. GTF TO RESUME AT 1999. FC INTACT AND PATENT DRAINING CLEAR YELLOW URINE. NO FACIAL GRIMACING OR GROANING TO INDICATE PAIN OR DISCOMFORT. CONTACT ISOLATION MAINTAINED AT ALL TIMES. BED IN LOW LOCK SETTING. ALL BELONGINGS KEPT NEAR BEDSIDE. WILL CONTINUE TO MONITOR.
[2019-09-23 20:00] VITALS: BP 130/68
[2019-09-23] MEDS: ACETAMINOPHEN 325 MG TABLET PO PRN (20:03)
[2019-09-23] MEDS: ATORVASTATIN 10 MG TABLET GT SCH (21:32)
[2019-09-24] VITALS: BP 135/72
[2019-09-24] MEDS: VANCOMYCIN HCL 125 MG/2.5 ML ORAL.SUSP PO SCH ×5 (00:58→23:48)
[2019-09-24] MEDS: IPRATROPIUM NEB FS 0.5 MG/2.5 ML AMPUL.NEB NEB SCH ×6 (02:36→23:09)
[2019-09-24] MEDS: ALBUTEROL FS 2.5 MG/3 ML VIAL.NEB IH SCH ×6 (02:36→23:10)
[2019-09-24 04:00] VITALS: BP 122/77
[2019-09-24 06:34] LABS: CALCIUM, SERUM 9.6 mg/dL (8.5-10.1); CREATININE 0.8 mg/dL (0.6-1.3); POTASSIUM 4.8 mmol/L (3.5-5.1)
--- NOTE | 2019-09-24 06:50 | NUR ---
LEAD SCIENTIST NOTES RECEIVED PATIENT AWAKE IN BED WITH NO DISTRESS NOTED. CALL LIGHT WITHIN REACH. TRACH INTACT AND PATENT. GTF RUNNING AND TOLERATING WELL. ALL DUE MEDS GIVEN ORDERED WITH NO ASE NOTED. WOUND CARE RENDERED AND TOLERATED WELL. FC INTACT AND PATENT DRAINING CLEAR YELLOW URINE. NO FACIAL GRIMACING OR GROANING TO INDICATE PAIN OR DISCOMFORT. CONTACT ISOLATION MAINTAINED AT ALL TIMES. BED IN LOW LOCK SETTING. ALL BELONGINGS KEPT NEAR BEDSIDE. WILL ENDORSE TO ONCOMING SHIFT.
--- NOTE | 2019-09-24 07:20 | NUR ---
PRODUCTION COUNTER NOTES RECEIVED PATIENT IN BED A/O X 1 AWAKE. ON COOL AEROSOL O2 100% RT AT BED SIDE. NO RESIDUAL NOTED AT GTUBE. NO SOB OR DISCOMFORT NOTED. BED AT THE LOWEST POSITION LOCKED, CALL LIGHT WITHIN REACH. WILL CONTINUE TO MONITOR.
[2019-09-24] MEDS: ACETYLCYSTEINE 10% SOLN 400 MG/4 ML VIAL NEB SCH ×3 (07:50→23:09)
[2019-09-24 08:00] VITALS: BP 123/76
[2019-09-24] MEDS: SULFAMETH/TRIMETH 800/160 MG 1 UDTAB TABLET GT SCH ×2 (09:58→22:11)
[2019-09-24] MEDS: CALCIUM CARBONATE (1250) 500 MG TABLET GT SCH (09:58)
[2019-09-24] MEDS: DOCUSATE SODIUM LIQ 100 MG/10 ML UDC GT SCH (09:59)
[2019-09-24] MEDS: CHLORHEXIDINE GLUCONATE 15 ML UDC MM SCH ×2 (09:59→22:12)
[2019-09-24] MEDS: LEVETIRACETAM SOL (5 ML) 100 MG/ML UDC GT SCH ×2 (09:59→22:12)
[2019-09-24] MEDS: PANTOPRAZOLE 40 MG/PACK PACK GT SCH (09:59)
[2019-09-24] MEDS: FERROUS SULFATE UDC 300 MG/5 ML UDC GT SCH ×3 (09:59→18:12)
[2019-09-24] MEDS: NYSTATIN TOP POWDER 15 GM BOTTLE TP SCH ×2 (10:00→18:12)
[2019-09-24] MEDS: MULTIVITAMINS,THERAGRAN 1 UDTAB TABLET PO SCH (10:00)
[2019-09-24] MEDS: MUPIROCIN OINT 2% 22 GM TUBE SCH ×2 (10:01→22:19)
[2019-09-24] MEDS: DAKINS QUARTER STRENGTH (0.125%) 480 ML BOTTLE TOP SCH (10:01)
[2019-09-24] MEDS: METOPROLOL TARTRATE 25 MG TABLET GT SCH ×2 (10:03→18:12)
[2019-09-24] MEDS: JEVITY 1.2 CAL 1,000 ML BOTTLE GT PRN (12:34)
[2019-09-24] MEDS: IV NS 0.9% 1,000 ML IV PRN (14:54)
[2019-09-24 16:00] VITALS: BP 123/72
--- NOTE | 2019-09-24 19:47 | NUR ---
TEACHER HOME THERAPY NOTES PATIENT IN BED A/O X 1 AWAKE. ON COOL AEROSOL O2 100% . ALL NEEDS ATTENDED, MEDS GIVEN. NO SOB OR DISCOMFORT NOTED. BED AT THE LOWEST POSITION LOCKED, CALL LIGHT WITHIN REACH. WILL CONTINUE TO MONITOR. ENDORSED TO LITHOGRAPH PRESS FEEDER NURSE FOR MALIK.
[2019-09-24 20:00] VITALS: BP 109/74
--- NOTE | 2019-09-24 20:00 | NUR ---
APPAREL DESIGNER NOTES RECEIVED PATIENT ASLEEP IN BED WITH NO DISTRESS NOTED. CALL LIGHT WITHIN REACH. TRACH INTACT AND PATENT ON COOL AEROSOL @10 LPM. GTF STARTED. FC INTACT AND PATENT DRAINING CLEAR YELLOW URINE. PERIPHERAL LINE INTACT AND PATENT. NO FACIAL GRIMACING OR GROANING TO INDICATE PAIN OR DISCOMFORT. CONTACT ISOLATION MAINTAINED AT ALL TIMES. BED IN LOW LOCK SETTING. ALL BELONGINGS KEPT NEAR BEDSIDE. WILL CONTINUE TO MONITOR
[2019-09-24] MEDS: ATORVASTATIN 10 MG TABLET GT SCH (22:11)
[2019-09-24] MEDS: ACETAMINOPHEN 325 MG TABLET PO PRN (23:48)
[2019-09-25] VITALS: BP 109/58
[2019-09-25] MEDS ORDERED: ALBUTEROL FS 2.5 MG/3 ML VIAL.NEB ONE (02:46)
[2019-09-25] MEDS: IPRATROPIUM NEB FS 0.5 MG/2.5 ML AMPUL.NEB NEB SCH ×4 (02:48→15:17)
[2019-09-25] MEDS: ALBUTEROL FS 2.5 MG/3 ML VIAL.NEB IH SCH ×4 (02:48→15:17)
[2019-09-25 04:00] VITALS: BP 112/51
[2019-09-25] MEDS: IV NS 0.9% 1,000 ML IV PRN (04:30)
[2019-09-25] MEDS: VANCOMYCIN HCL 125 MG/2.5 ML ORAL.SUSP PO SCH ×2 (05:12→12:54)
--- NOTE | 2019-09-25 06:12 | NUR ---
PRINCIPAL ARCHITECT NOTES PATIENT ASLEEP IN BED WITH NO DISTRESS NOTED. CALL LIGHT WITHIN REACH. TRACH INTACT AND PATENT. GTF RUNNING AT 60ML/HR. FC INTACT AND PATENT. WOUND CARE RENDERED AND TOLERATED WELL. PERIPHERAL LINES INTACT AND PATENT. NO FACIAL GRIMACING OR GROANING TO INDICATE PAIN OR DISCOMFORT. CONTACT ISOLATION MAINTAINED AT ALL TIMES. BED IN LOW LOCK SETTING. ALL BELONGINGS KEPT NEAR BEDSIDE. WILL ENDORSE TO ONCOMING SHIFT.
--- NOTE | 2019-09-25 07:00 | NUR ---
Tele/RN Opening note Patient received in bed, awake, non verbal, on ventilator. Pt. does no s/s of distress or any discomfort. Kept clean trach ostomy dressing, no residual g-tube, clean/dry dressing. Reposition provided, keep on elated HOB. Skin is warm and dry to touch. Maintained contact isolation, will continue to monitor.
[2019-09-25 07:32] LABS: CALCIUM, SERUM 9.5 mg/dL (8.5-10.1); POTASSIUM 4.5 mmol/L (3.5-5.1)
[2019-09-25 08:00] VITALS: BP 119/75
[2019-09-25] MEDS: LEVETIRACETAM SOL (5 ML) 100 MG/ML UDC GT SCH (08:06)
[2019-09-25] MEDS: CALCIUM CARBONATE (1250) 500 MG TABLET GT SCH (08:06)
[2019-09-25] MEDS: CHLORHEXIDINE GLUCONATE 15 ML UDC MM SCH (08:06)
[2019-09-25] MEDS: FERROUS SULFATE UDC 300 MG/5 ML UDC GT SCH ×2 (08:07→12:54)
[2019-09-25] MEDS: DOCUSATE SODIUM LIQ 100 MG/10 ML UDC GT SCH (08:07)
[2019-09-25] MEDS: ACETYLCYSTEINE 10% SOLN 400 MG/4 ML VIAL NEB SCH ×2 (08:07→15:17)
[2019-09-25] MEDS: MULTIVITAMINS,THERAGRAN 1 UDTAB TABLET PO SCH (08:08)
[2019-09-25] MEDS: SULFAMETH/TRIMETH 800/160 MG 1 UDTAB TABLET GT SCH (08:08)
[2019-09-25] MEDS: PANTOPRAZOLE 40 MG/PACK PACK GT SCH (08:09)
[2019-09-25] MEDS: METOPROLOL TARTRATE 25 MG TABLET GT SCH (08:09)
[2019-09-25] MEDS: DAKINS QUARTER STRENGTH (0.125%) 480 ML BOTTLE TOP SCH (08:10)
[2019-09-25] MEDS: NYSTATIN TOP POWDER 15 GM BOTTLE TP SCH (08:11)
[2019-09-25] MEDS: MUPIROCIN OINT 2% 22 GM TUBE SCH (08:11)
--- NOTE | 2019-09-25 10:30 | NUR ---
RN NOTES D/C TELE MONITOR PER LINEMAN Dr NOEL, Ptient on med/surge at this time.
[2019-09-25 16:00] VITALS: BP 137/87
--- NOTE | 2019-09-25 17:11 | NUR ---
WALLPAPER CONSULTANT NOTES PATIENT DISCHARGE AT THIS TIME GOING BACK TO THE [facility] AT THIS TIME. PATIENT STABLE,ON TRACHEA COOL AEROSOL AT 40%.SUCTIONED BY RN, MAKE PATIENT MORE COMFORTABLE BEFORE DISCHARGE. V/S WNL. MUHAMMAD CATHETER DARNING LIGHT YELLOW OUTPUT. REMOVED IV ACCESS. MED RECONCILIATION AND DISCHARGE ORDER REVIEWED AND EXPLAINED TO. REPORT GIVEN [facility] ELSY LERNER. RN VERBALIZED UNDERSTANDING. PATIENT HAS NO BELONGING, UNABLE TO SIGN PAPERWORK. CO SIGNED BY CHARGE NURSE RANULFO. GT INTACT. PAPERWORK GIVEN TO AMBULANCE PERSONNEL. PATIENT INORGANIC CHEMISTRY TEACHER BY AMBULANCE.PATIENT FAMILY AWARE OF DISCHARGE PLANING.
== END 2019-09-25 17:10 | DRG 710 ==
LOC: ER 04:45 → TELE 10:03 → MED 09-25 10:36
PROC: 5A1945Z Respiratory Ventilation, 24-96 Consecutive Hours (ICD-10-PCS; principal; 2019-09-19)
PROC: 0KBN0ZZ Excision of Right Hip Muscle, Open Approach (ICD-10-PCS; 2019-09-20)
DX: A41.9 Sepsis, unspecified organism (principal); J96.21 Acute and chronic respiratory failure with hypoxia; G82.50 Quadriplegia, unspecified; Z99.11 Dependence on respirator [ventilator] status; G93.1 Anoxic brain damage, not elsewhere classified; L89.214 Pressure ulcer of right hip, stage 4; E44.0 Moderate protein-calorie malnutrition; A04.72 Enterocolitis due to Clostridium difficile, not specified as recurrent; J18.9 Pneumonia, unspecified organism; L89.896 Pressure-induced deep tissue damage of other site; R13.10 Dysphagia, unspecified; N39.0 Urinary tract infection, site not specified; Z86.73 Personal history of transient ischemic attack (TIA), and cerebral infarction without residual deficits; J96.22 Acute and chronic respiratory failure with hypercapnia; G40.909 Epilepsy, unspecified, not intractable, without status epilepticus; E78.5 Hyperlipidemia, unspecified; D64.9 Anemia, unspecified; I10 Essential (primary) hypertension; L30.4 Erythema intertrigo; J98.11 Atelectasis; Y95 Nosocomial condition; Z93.1 Gastrostomy status; Z93.0 Tracheostomy status; M24.552 Contracture, left hip; M24.551 Contracture, right hip; M62.562 Muscle wasting and atrophy, not elsewhere classified, left lower leg; M62.561 Muscle wasting and atrophy, not elsewhere classified, right lower leg
CPT/HCPCS: 31720; 36415; 36600; 71045-TC; 73501; 80048-TC; 80053-TC; 80061-TC; 80202-TC; 81000-TC; 82803-TC; 83605-TC; 83690-TC; 83735-TC; 83880; 84100-TC; 84443-TC; 84484-TC; 85025-TC; 85730-TC; 87040-TC; 87070-TC; 87081-TC; 87086-TC; 87186-TC; 94002-TC; 94003-TC; 94640-TC; 94664-TC; 94760-TC; 94762-TC; 94799-TC; A6253; A6403; G0378; J1953; J2185; J3370; J7030; J7060

== ENCOUNTER 2019-11-14 00:47 | Inpatient (IN) | payer MEDICAID ==
[~2019-11-14] VITALS: Ht 152.4 cm; Wt 56.2 kg
[2019-11-14] VITALS (7 sets, daily range): BP systolic 90–107; BP diastolic 48–70
[~2019-11-14 00:47] MED LIST: ACET-2605 GT; ACET-868 GT; ALBU2.5V38 IH; ATOR10TA GT; BISA10SU11 RC; CALC500T52 GT; CHLO473M5 MM; DOCU50LI GT; FERR300L GT; FOLI0.8T GT; IPRA3AMP23 IH; LACT-96 GT; LEVE100S GT; LORA10TA7 GT; MAGN400O6 GT; METO25TA20 GT; MULT-447 GT; NA P133E RC; OMEP20CA15 GT; PANT40SU2 GT; PIPE3.376 IV; SACC250C GT; VIT500LI GT
--- NOTE | 2019-11-14 00:55 | NUR ---
PT BIB RA FROM [facility] WITH A C/O FEVER, TACHYCARDIA, & HYPOTENSION. PT HAS WOUNDS ON BILATERAL BUTTOCK. PT HAS BLE AND BUE CONTRACTURES. TRACH WITH PASSE VALVE. PT HAS A GTUBE AND MUHAMMAD TO GRAVITY SERVICE MECHANIC. PT HAS A 22G RAC IV SERVICE MECHANIC. IV IS PATENT AND BENIGN. 18G IV STARTED ON LFA. BLOOD DRAWN AND BLOOD CULTURES X2 DRAWN. PT WAS PLACED ON THE MONITOR AND CONTINUOUS PULSE OX. RECTAL TEMP WAS 106.9F. DR FRANCO NOTIFIED.
[2019-11-14] MEDS ORDERED: ACETAMINOPHEN 650 MG/SUPP.RECT RC ONE ×2 (01:28→02:00)
[2019-11-14 01:41] LABS: BASOPHILS # (AUTO) 0.1 /CMM (0.0-0.2); BASOPHILS % (AUTO) 0.5 % (0.0-2.0); EOSINOPHILS % (AUTO) 0.2 % (0.0-6.0); HEMATOCRIT 33 % (39-51); HEMOGLOBIN 10.2 g/dL (13.5-17.5); LYMPHOCYTES # (AUTO) 2.9 /CMM (0.8-4.8); LYMPHOCYTES % (AUTO) 14.5 % (20.0-44.0); MEAN CORPUSCULAR HGB CONC 31 g/dl (31.0-36.0); MEAN CORPUSCULAR VOLUME 93 fL (80-96); MONOCYTES # (AUTO) 2.7 /CMM (0.1-1.30); MONOCYTES % (AUTO) 13.2 % (2.0-12.0); NEUTROPHILS # (AUTO) 14.5 /CMM (1.8-8.9); NEUTROPHILS % (AUTO) 71.6 % (43.0-81.0); PLATELET COUNT (AUTO) 527 /CMM (150-450); RED BLOOD CELL COUNT(AUTO) 3.49 MIL/uL (4.5-6.0); WHITE BLOOD COUNT (AUTO) 20.3 K/uL (4.3-11.0)
[2019-11-14 01:48] LABS: CALCIUM, SERUM 9.2 mg/dL (8.5-10.1); CARBON DIOXIDE 27 mmol/L (21-32); CHLORIDE 105 mmol/L (98-107); CREATININE 2.1 mg/dL (0.6-1.3); GLUCOSE 123 mg/dL (74-106); POTASSIUM 4.3 mmol/L (3.5-5.1); SODIUM SERUM 141 mmol/L (136-145); UREA NITROGEN, BLOOD 64 mg/dL (7-18)
[2019-11-14 01:53] LABS: ALANINE AMINOTRANSFERASE 32 U/L (12-78); ALBUMIN 2.3 g/dL (3.4-5.0); ALKALINE PHOSPHATASE 114 U/L (46-116); ASPARTATE AMINOTRANSFERASE 45 U/L (15-37); BILIRUBIN,DIRECT 0.1 mg/dL (0.0-0.2); BILIRUBIN,TOTAL 0.3 mg/dL (0.2-1.0); TOTAL PROTEIN, SERUM 9.5 g/dL (6.4-8.2)
[2019-11-14] MEDS ORDERED: IV NS 0.9% 1,000 ML BAG IV ONE (02:00)
--- NOTE | 2019-11-14 02:06 | NUR ---
RT IS AT THE BEDSIDE AND SUCTIONING IN PROGRESS.
[2019-11-14] MEDS: CEFTRIAXONE 1 G in IV D5W 50 ML IV ONE ×2 (02:15→02:40)
--- NOTE | 2019-11-14 02:25 | NUR ---
PER DR FRANCO, PT WAS PLACED ON A TRACH MASK @ 10L.
[2019-11-14] MEDS ORDERED: VANCOMYCIN 1 GM in IV D5W 250 ML IV ONE (02:30)
--- NOTE | 2019-11-14 02:31 | NUR ---
RECTAL TEMP IS NOW 103.4F. DR FRANCO MADE AWARE.
[2019-11-14] MEDS ORDERED: VANCOMYCIN 1 GM VIAL ONE (02:36)
[2019-11-14] MEDS ORDERED: CEFTRIAXONE 1GM BAG (ER ONLY) 50 ML IV ONE (02:36)
--- NOTE | 2019-11-14 02:40 | NUR ---
MUHAMMAD CLAMPED AND URINE SAMPLE SENT TO LAB.
--- NOTE | 2019-11-14 02:55 | NUR ---
CALLING REPORT TO TELE NURSE.
--- NOTE | 2019-11-14 02:58 | NUR ---
Sabiha MILLER DNP IS AT THE BEDSIDE. PT IS NOW GOING TO [facility].
[2019-11-14 03:13] LABS: APPEARANCE,URINE CLOUDY (CLEAR); BILIRUBIN,URINE NEGATIVE (NEGATIVE); BLOOD, URINE SMALL Ery/uL (NEGATIVE); COLOR,URINE YELLOW (YELLOW); KETONES,URINE NEGATIVE (NEGATIVE); LEUKOCYTE ESTERASE ,URINE MODERATE (NEGATIVE); NITRITE, URINE NEGATIVE (NEGATIVE); PROTEIN,URINE 30 mg/dl (NEGATIVE); UGLUCOSE NEGATIVE (NEGATIVE); UROBILINOGEN,URINE 0.2 EU/dL (0.2)
--- NOTE | 2019-11-14 03:21 | NUR ---
PT APPEARS TO BE RESTING COMFORTABLY. WILL CONTINUE TO MONITOR THE PT.
[2019-11-14] MEDS ORDERED: ONDANSETRON HCL/PF 4 MG/2 ML VIAL IVP PRN (03:30)
[2019-11-14] MEDS ORDERED: ALBUTEROL FS 2.5 MG/0.5 ML VIAL.NEB NEB PRN (03:30)
[2019-11-14] MEDS ORDERED: LORAZEPAM INJ 2 MG/ML VIAL IV PRN (03:30)
[2019-11-14] MEDS ORDERED: MORPHINE SULFATE INJ 2 MG/ML DISP.SYRIN IV PRN (03:30)
[2019-11-14] MEDS ORDERED: PIPERACILLIN /TAZOBACTAM 3.375 G in IV NS 0.9% 50 ML IV ONE (03:30)
[2019-11-14] MEDS ORDERED: Z GUARD REMEDY 2 OZ OINT TP PRN (03:30)
[2019-11-14] MEDS ORDERED: MAG HYDROX/AL HYDROX/SIMETH 30 ML UDC PO PRN (03:30)
[2019-11-14] MEDS ORDERED: HYDROCODONE/APAP 5/325MG 1 EACH TABLET GT PRN (03:30)
[2019-11-14 03:33] LABS: BACTERIA,URINE Many /HPF (None Seen); SQUAMOUS EPITHELIAL CELL,UR Rare /HPF (None Seen)
--- NOTE | 2019-11-14 03:54 | NUR ---
BED ASSIGNMENT 120-1
--- NOTE | 2019-11-14 04:14 | NUR ---
REPORT GIVEN TO ELSY CUBA
--- NOTE | 2019-11-14 04:33 | NUR ---
PT LEFT FOR [facility] VIA GURNEY PER PROTOCOL.
[2019-11-14] MEDS ORDERED: PIPERACILLIN /TAZOBACTAM 3.375 G in IV D5W 50 ML IV SCH (05:00)
[2019-11-14] MEDS ORDERED: PIPERACILLIN /TAZOBACTAM 3.375 G VIAL IV ONE (05:55)
[2019-11-14] MEDS: IV NS 0.9% 1,000 ML IV PRN ×2 (06:00→16:55)
--- NOTE | 2019-11-14 06:30 | NUR ---
RN NOTES RECEIVED PATIENT @ 0445 AM FROM ER DIAGNOSED WITH SEPSIS/ PNA SECONDARY TO SACRAL DECUB. WITH MULTIPLE HX. WITH TRACH PORTEX #7 ON O2 10LPM VIA TRACH MASK W/ FIO2 35%. FEBRILE AT 102. 5 WHEN RECEIVED REPEATED 30 MINUTES AFTER BATH TEMPERATURE WENT DOWN TO 98.7 DEGREE FHARENHEIGHT. VS IN LOW 90'S. NO ACUTE RESPIRATORY DISTRESS. SATURATION 100%. SUCTIONED PATIENT WITH WHITISH THICK SECRETION. INCONTINENT CARE RENDERED. SKIN CARE PROVIDED PHOTO TAKEN, RE ENFORCED DRESSING. WILL FOLLOW UP WOUND NURSE AND DIETARY. WITH MUHAMMAD CATH DRAINED VIA GRAVITY WITH CLOUDY SEDIMENTED OUTPUT. KEPT PT CLEAN AND DRY. ALL DUE MEDICINE WILL BE GIVEN ORDERED. WILL ENDORSED CONTINUITY OF CARE TO AM NURSE.
--- NOTE | 2019-11-14 07:30 | NUR ---
[facility] RN OPENING NOTE RECEIVED REPORT FROM PN NURSE.PATIENT IN BED.OPEN EYES SPONTANEOUSLY AND TO TOUCH .NOT FALLOWING ANY COMMANDS.ON COOL AEROSOL SATURATING 96% WITH 35%FIO2.NO SOB NO DISTRESS NOTED.IV LINES ARE PATENT AND INTACT.GT CLAMPED.MUHAMMAD CATH DRAINING CLOUDY YELLOW URINE.BED IS LOW AND IN LOCKED POSITION.CALL LIGHT REACH.BED ALARM ON.SRX3.WILL CONTINUE TO MONITOR.
[2019-11-14] MEDS ORDERED: HYDR-4384 PO (07:53)
[2019-11-14] MEDS ORDERED: IPRA3AMP23 IH (07:53)
[2019-11-14] MEDS ORDERED: MAG30ORA GT (07:53)
[2019-11-14] MEDS ORDERED: CHLO118L6 TP (07:53)
[2019-11-14] MEDS ORDERED: AMIN887L GT (07:53)
[2019-11-14] MEDS ORDERED: FEE PK DOSING 1 MIN EA MC ONE (08:29)
[2019-11-14] MEDS: PANTOPRAZOLE 40 MG VIAL IV SCH (08:37)
[2019-11-14] MEDS: PIPERACILLIN /TAZOBACTAM 3.375 G in IV D5W 100 ML IV SCH ×2 (12:38→20:18)
--- NOTE | 2019-11-14 12:53 | NUR ---
DIVISIONAL STOREKEEPER NOTE PATIENT BP IN LOW 90'S WOODS OVERSEER LAYLA MADE AWARE.GOT NEW ORDER TO GIVE 500ML IVF BOLUS.WILL CONTINUE TO MONITOR.
[2019-11-14] MEDS ORDERED: IV NS 0.9% 500 ML IV ONE (13:00)
--- NOTE | 2019-11-14 13:41 | NUR ---
CANDY SEPARATOR ENROBING NOTE SEEN BY COLLEEN RICH,UPDATED ABOUT PATIENT CONDITION.MADE AWARE ABOUT S/P IVF BOLUS BP 107/70.DVT PROPHYLAXIS AND MED RECON SHE WILL F/U.OK TO START GTF WITH DIETARY RECOMMENDATION.WILL CONTINUE TO MONITOR.
[2019-11-14] MEDS ORDERED: LIDOCAINE 1%-EPI 1:100,000 20 ML VIAL TP ONE (14:30)
[2019-11-14] MEDS ORDERED: SILVER NITRATE APPLICATOR 1 EA BOX TP ONE (14:30)
--- NOTE | 2019-11-14 14:31 | NUR ---
ROTOR CASTING MACHINE OPERATOR NOTE SEEN BY COLLEEN JOHNSON ,SEEN WOUNDS .GOT NEW ORDERS.CALL MADE TO BEN MCELROY.SPOKE TO VIA PHONE .OK TO DO SERIAL DEBRIDEMENT OF SACRUM AND BUTTOCKS.VERIFIED WITH 2 RN.WILL CONTINUE TO MONITOR.
[2019-11-14] MEDS: DAKINS QUARTER STRENGTH (0.125%) 480 ML BOTTLE TOP SCH (14:51)
[2019-11-14] MEDS: ACETAMINOPHEN 325 MG TABLET MC PRN (16:56)
--- NOTE | 2019-11-14 17:24 | NUR ---
ASSEMBLY ASSOCIATE NOTE GOT NEW RECOMMENDATION FROM DIETITIAN TO START ON GTF TWO TERRY HN@40ML/HR FOR 24 HRS.BUT TO START ON 25ML /HR AND ADVANCE TO 40ML HR TOLERATED.COLLEEN HUGHES TO CONTINUE WITH DIETITIAN RECOMMENDATION.
--- NOTE | 2019-11-14 19:22 | NUR ---
SLACK LINE YARDER CLOSING NOTE .PATIENT IN BED.OPEN EYES SPONTANEOUSLY AND TO TOUCH .NOT FALLOWING ANY COMMANDS.ON COOL AEROSOL SATURATING 98% WITH 35%FIO2.NO SOB NO DISTRESS NOTED.IV LINES ARE PATENT AND INTACT.GT PATENT.MUHAMMAD CATH DRAINING CLOUDY YELLOW URINE.BED IS LOW AND IN LOCKED POSITION.CALL LIGHT REACH.BED ALARM ON.SRX3.ENDORSED TO PM NURSE FOR MALIK.
[2019-11-14] MEDS: TWOCAL HN 1,000 ML LIQUID GT PRN (20:18)
[2019-11-14] MEDS ORDERED: VANCOMYCIN 0.75 GM in IV D5W 250 ML IV SCH (21:00)
[2019-11-15] VITALS (9 sets, daily range): BP systolic 102–130; BP diastolic 63–83
[2019-11-15] MEDS: PIPERACILLIN /TAZOBACTAM 3.375 G in IV D5W 100 ML IV SCH ×2 (03:08→12:54)
[2019-11-15] MEDS: IV NS 0.9% 1,000 ML IV PRN ×2 (03:08→15:31)
[2019-11-15] MEDS: ACETAMINOPHEN 325 MG TABLET MC PRN ×2 (05:05→17:23)
[2019-11-15 07:12] LABS: BASOPHILS # (AUTO) 0.1 /CMM (0.0-0.2); BASOPHILS % (AUTO) 0.6 % (0.0-2.0); EOSINOPHILS % (AUTO) 0.4 % (0.0-6.0); HEMATOCRIT 23 % (39-51); HEMOGLOBIN 7.1 g/dL (13.5-17.5); LYMPHOCYTES # (AUTO) 1.7 /CMM (0.8-4.8); LYMPHOCYTES % (AUTO) 13.5 % (20.0-44.0); MEAN CORPUSCULAR HGB CONC 31 g/dl (31.0-36.0); MEAN CORPUSCULAR VOLUME 94 fL (80-96); MONOCYTES # (AUTO) 1.5 /CMM (0.1-1.30); MONOCYTES % (AUTO) 11.8 % (2.0-12.0); NEUTROPHILS # (AUTO) 9.3 /CMM (1.8-8.9); NEUTROPHILS % (AUTO) 73.7 % (43.0-81.0); PLATELET COUNT (AUTO) 280 /CMM (150-450); RED BLOOD CELL COUNT(AUTO) 2.39 MIL/uL (4.5-6.0); WHITE BLOOD COUNT (AUTO) 12.6 K/uL (4.3-11.0)
[2019-11-15 07:32] LABS: CALCIUM, SERUM 7.8 mg/dL (8.5-10.1); CREATININE 1.6 mg/dL (0.6-1.3); PHOSPHORUS 2.2 mg/dL (2.5-4.9); POTASSIUM 3.7 mmol/L (3.5-5.1)
--- NOTE | 2019-11-15 07:39 | NUR ---
TELE/RN CLOSING NOTE PATIENT IN BED OBTUNDED. NO SIGN OF ANY SOB. PATIENT IS ON A T-PIECE WITH 8L OF 02 WITH 35% OF FI02 WITH NO SIGN OF ANY SOB. PATIENT ON THE MONITOR IS SHOWING SINUS TACHY WITH HR IN THE 105. PATIENT HAS FEVER OF 101.5. TYLENOL WAS GIVEN AND COOLING METHODS APPLIED. ENDORSED TO MORNING SHIFT NURSE TO FOLLOW UP WITH TEMP. ALL SAFETY PRECAUTIONS APPLIED.
[2019-11-15] MEDS: PANTOPRAZOLE 40 MG VIAL IV SCH ×2 (08:27→17:17)
[2019-11-15] MEDS: DAKINS QUARTER STRENGTH (0.125%) 480 ML BOTTLE TOP SCH (09:28)
[2019-11-15] MEDS ORDERED: K PHOS NEUTRAL 250 MG TABLET PO ONE (12:30)
--- NOTE | 2019-11-15 12:49 | NUR ---
WOUND CARE CONSULT WOUND CARE RECEIVED CONSULT FOR MULTIPLE DECUBITUS, SACRAL DECUB. WOUND CARE WILL DEFER CONSULT AND ALL TREATMENT PLANS TO PLASTIC SURGICAL TEAM WHO ARE CURRENTLY FOLLOWING THIS PATIENT. PATIENT WITH LALY AT 11, ALL PRESSURE ULCER PREVENTION MEASURES ARE NOTED TO BE IN PLACE AT THIS TIME. WILL SEE PRN.
--- NOTE | 2019-11-15 14:52 | NUR ---
RN NOTES CALLED PHARMACY AND SPOKE WITH NAEL TO FOLLOW UP WITH FERRLECIT 125MG
[2019-11-15] MEDS ORDERED: DOSING PER PHARMACY-AMIKACI IV IV PRN (15:00)
[2019-11-15] MEDS ORDERED: FEE PK DOSING 1 MIN EA MC ONE (15:22)
[2019-11-15] MEDS: SOD FERRIC GLUC 125 MG in IV NS 0.9% 100 ML IV SCH (15:58)
[2019-11-15] MEDS ORDERED: ALBUTEROL FS 2.5 MG/3 ML VIAL.NEB IH PRN (16:00)
[2019-11-15] MEDS ORDERED: BISACODYL SUPP (10 MG) 10 MG/SUPP.RECT SUPP.RECT RC PRN (16:00)
[2019-11-15] MEDS ORDERED: AMIKACIN 300 MG in IV D5W 100 ML IV SCH (17:00)
[2019-11-15] MEDS: FERROUS SULFATE UDC 300 MG/5 ML UDC GT SCH (17:16)
[2019-11-15] MEDS: METOPROLOL TARTRATE 25 MG TABLET GT SCH (17:17)
[2019-11-15] MEDS: PROSOURCE / PROSTAT (PYXIS) 30 ML UDC GT SCH (17:32)
[2019-11-15 17:34] LABS: OCCULT BLOOD STOOL NEGATIVE (NEGATIVE)
[2019-11-15] MEDS: COLISTIMETHATE SODIUM 75 MG in IV NS 0.9% 50 ML IV SCH (17:34)
--- NOTE | 2019-11-15 19:05 | NUR ---
RN OPENING NOTE RECEIVED PATIENT IN BED RESTING WITH HOB ELEVATED. OBTUNDED. ON TRACH. BREATHING EVEN AND NON LABORED. NO SOB NOTED. GTF ON AND RUNNING AT 45 ML/HR. ON [place]. URINE IS CLEAR AND YELLOW IN COLOR. IN NO APPARENT DISTRESS NOTED AT THIS TIME. BED IS LOWERED AND LOCKED FOR SAFETY. WILL CONTINUE TO MONITOR.
[2019-11-15] MEDS ORDERED: Medication Not On Formulary EA (Ipratropium/Albuterol Sulfate (Duoneb 2.5-0.5 Mg/3 Ml So IH SCH (19:30)
--- NOTE | 2019-11-15 19:36 | NUR ---
RN CLOSING NOTES PATIENT IN BED OBTUNDED. NO SIGN OF ANY SOB. PATIENT IS ON A T-PIECE WITH 8L OF 02 WITH 35% OF FI02 WITH NO SIGN OF ANY SOB. PATIENT ON THE MONITOR IS SHOWING ST @101. PATIENT HAD ELEVATED OF 102.7 @1600, TYLENOL WAS GIVEN AND COOLING METHODS APPLIED. ENDORSED TO PM RN TO FOLLOW UP WITH TEMP. ALL SAFETY PRECAUTIONS APPLIED.
[2019-11-15] MEDS: ALBUTEROL FS 2.5 MG/3 ML VIAL.NEB NEB SCH (19:59)
[2019-11-15] MEDS: IPRATROPIUM NEB FS 0.5 MG/2.5 ML AMPUL.NEB NEB SCH (19:59)
[2019-11-15] MEDS: CHLORHEXIDINE GLUCONATE 15 ML UDC MM SCH (20:43)
[2019-11-15] MEDS: LEVETIRACETAM SOL (5 ML) 100 MG/ML UDC GT SCH (20:43)
[2019-11-15] MEDS: LINEZOLID RTU BAG 600 MG in PREMIX 1 EA IV SCH (20:44)
[2019-11-15] MEDS: ATORVASTATIN 10 MG TABLET GT SCH (21:50)
[2019-11-15] MEDS: TWOCAL HN 1,000 ML LIQUID GT PRN (22:05)
[2019-11-16] VITALS: BP 125/78
[2019-11-16] MEDS: IPRATROPIUM NEB FS 0.5 MG/2.5 ML AMPUL.NEB NEB SCH ×4 (01:36→19:16)
[2019-11-16] MEDS: ALBUTEROL FS 2.5 MG/3 ML VIAL.NEB NEB SCH ×4 (01:36→19:16)
[2019-11-16] MEDS: ACETAMINOPHEN 325 MG TABLET MC PRN ×2 (02:05→22:23)
[2019-11-16] MEDS: IV NS 0.9% 1,000 ML IV PRN ×2 (03:37→21:00)
[2019-11-16 04:00] VITALS: BP 122/72
[2019-11-16] MEDS: COLISTIMETHATE SODIUM 75 MG in IV NS 0.9% 50 ML IV SCH ×2 (06:44→17:59)
[2019-11-16 06:51] LABS: BASOPHILS # (AUTO) 0.1 /CMM (0.0-0.2); BASOPHILS % (AUTO) 0.5 % (0.0-2.0); EOSINOPHILS % (AUTO) 2.4 % (0.0-6.0); HEMATOCRIT 23 % (39-51); LYMPHOCYTES # (AUTO) 1.8 /CMM (0.8-4.8); MEAN CORPUSCULAR HGB CONC 31 g/dl (31.0-36.0); MEAN CORPUSCULAR VOLUME 93 fL (80-96); MONOCYTES % (AUTO) 8.7 % (2.0-12.0); NEUTROPHILS # (AUTO) 8.1 /CMM (1.8-8.9); NEUTROPHILS % (AUTO) 72.4 % (43.0-81.0); PLATELET COUNT (AUTO) 241 /CMM (150-450); RED BLOOD CELL COUNT(AUTO) 2.42 MIL/uL (4.5-6.0); WHITE BLOOD COUNT (AUTO) 11.2 K/uL (4.3-11.0)
--- NOTE | 2019-11-16 07:26 | NUR ---
RN CLOSING NOTE PATIENT IS IN BED RESTING WITH HOB ELEVATED. OBTUNDED. ON TRACH. BREATHING EVEN AND NON LABORED. PATIENT IS KEPT NPO. GTF ON RUNNING AND KEPT PATENT. PATIENT IS KEPT CLEAN, DRY, AND COMFORTABLE. TURNED AND REPOSITIONED Q2HRS. MRSA OF [place] RESULTED POSITIVE IN THIS SHIFT. MD MADE AWARE AND RECEIVED NEW ORDERS FOR BACTROBAN OINTMENT. ORDERS NOTED AND CARRIED OUT. IN NO APPARENT DISTRESS NOTED AT THIS TIME. CALL LIGHT IS WITHIN REACH. WILL ENDORSE TO AM SHIFT RN FOR CONTINUATION OF CARE.
[2019-11-16 07:43] LABS: MAGNESIUM 1.8 mg/dL (1.8-2.4); PHOSPHORUS 2.1 mg/dL (2.5-4.9); POTASSIUM 3.8 mmol/L (3.5-5.1)
[2019-11-16 07:44] LABS: IRON, SERUM 67 ug/dl (50-175); TOTAL IRON BINDING CAPACITY 181 ug/dl (250-450)
[2019-11-16 07:52] LABS: FERRITIN 759 ng/mL (8-388)
[2019-11-16 08:00] VITALS: BP 115/74
[2019-11-16] MEDS ORDERED: PANTOPRAZOLE 40 MG/PACK PACK GT SCH (09:00)
[2019-11-16] MEDS: MUPIROCIN OINT 2% 22 GM TUBE SCH ×2 (09:00→20:59)
[2019-11-16] MEDS: CALCIUM CARBONATE (1250) 500 MG TABLET GT SCH (09:09)
[2019-11-16] MEDS: ASCORBIC ACID 500 MG TABLET GT SCH (09:09)
[2019-11-16] MEDS: LEVETIRACETAM SOL (5 ML) 100 MG/ML UDC GT SCH ×2 (09:09→20:59)
[2019-11-16] MEDS: CHLORHEXIDINE GLUCONATE 15 ML UDC MM SCH ×2 (09:10→20:59)
[2019-11-16] MEDS: FERROUS SULFATE UDC 300 MG/5 ML UDC GT SCH ×3 (09:10→17:56)
[2019-11-16] MEDS: DOCUSATE SODIUM LIQ 100 MG/10 ML UDC GT SCH (09:10)
[2019-11-16] MEDS: MULTIVIT W/MINERALS 1 TAB TABLET GT SCH (09:10)
[2019-11-16] MEDS: PANTOPRAZOLE 40 MG VIAL IV SCH ×2 (09:11→17:56)
[2019-11-16] MEDS: DAKINS QUARTER STRENGTH (0.125%) 480 ML BOTTLE TOP SCH (09:12)
[2019-11-16] MEDS: LINEZOLID RTU BAG 600 MG in PREMIX 1 EA IV SCH ×2 (09:20→20:58)
[2019-11-16] MEDS: METOPROLOL TARTRATE 25 MG TABLET GT SCH ×2 (09:25→17:00)
[2019-11-16] MEDS ORDERED: NEUTRA PHOS 1 POWD.PACKET PO ONE (10:00)
[2019-11-16] MEDS: PROSOURCE / PROSTAT (PYXIS) 30 ML UDC GT SCH ×3 (10:22→17:56)
[2019-11-16] MEDS: AMIKACIN 300 MG in IV D5W 100 ML IV SCH ×2 (11:21→22:23)
[2019-11-16 12:00] VITALS: BP 120/76
[2019-11-16] MEDS: SOD FERRIC GLUC 125 MG in IV NS 0.9% 100 ML IV SCH (14:59)
[2019-11-16 16:00] VITALS: BP_SYST 110; BP_SYST 120; BP_DIAS 72; BP_DIAS 76
[2019-11-16 20:00] VITALS: BP 121/87
[2019-11-16] MEDS: ATORVASTATIN 10 MG TABLET GT SCH (21:00)
[2019-11-16] MEDS ORDERED: MUPIROCIN OINT 2% 22 GM TUBE SCH (21:00)
[2019-11-16] MEDS: TWOCAL HN 1,000 ML LIQUID GT PRN (22:22)
[2019-11-17] VITALS (10 sets, daily range): BP systolic 107–133; BP diastolic 74–92
[2019-11-17] MEDS: ALBUTEROL FS 2.5 MG/3 ML VIAL.NEB NEB SCH ×4 (00:33→19:44)
[2019-11-17] MEDS: IPRATROPIUM NEB FS 0.5 MG/2.5 ML AMPUL.NEB NEB SCH ×4 (00:33→19:45)
--- NOTE | 2019-11-17 00:36 | NUR ---
RT NOTE. PREFORMED CPT ON PT. COUGHED UP PINK THICK MOD SPUTUM. FUNMILAYO CPT AND BREATHING TX WELL NO S/S OF SOB OR RESPIRATORY DISTRESS.
[2019-11-17] MEDS: COLISTIMETHATE SODIUM 75 MG in IV NS 0.9% 50 ML IV SCH (05:31)
[2019-11-17] MEDS: ACETAMINOPHEN 325 MG TABLET MC PRN (05:41)
--- NOTE | 2019-11-17 07:02 | NUR ---
BONE PROCESS OPERATOR CLOSING NOTE PATIENT IS IN BED RESTING WITH HOB ELEVATED. OBTUNDED. BREATHING EVEN AND NON LABORED. IV LINES ON LEFT FOREARM AND RIGHT ANTECUBITAL KEPT PATENT. ON [place]. ON GTF AND TOLERATED WELL. DUE MEDS GIVEN AND TOLERATED WELL. PATIENT IS KEPT CLEAN, DRY, AND COMFORTABLE. WILL ENDORSE TO AM SHIFT RN FOR CONTINUATION OF CARE.
[2019-11-17 07:17] LABS: BASOPHILS % (AUTO) 0.4 % (0.0-2.0); EOSINOPHILS % (AUTO) 4.4 % (0.0-6.0); HEMATOCRIT 22 % (39-51); LYMPHOCYTES # (AUTO) 1.8 /CMM (0.8-4.8); LYMPHOCYTES % (AUTO) 17.3 % (20.0-44.0); MEAN CORPUSCULAR HGB CONC 32 g/dl (31.0-36.0); MEAN CORPUSCULAR VOLUME 94 fL (80-96); MONOCYTES # (AUTO) 0.7 /CMM (0.1-1.30); NEUTROPHILS # (AUTO) 7.3 /CMM (1.8-8.9); NEUTROPHILS % (AUTO) 70.9 % (43.0-81.0); PLATELET COUNT (AUTO) 220 /CMM (150-450); RED BLOOD CELL COUNT(AUTO) 2.32 MIL/uL (4.5-6.0); WHITE BLOOD COUNT (AUTO) 10.3 K/uL (4.3-11.0)
[2019-11-17 07:22] LABS: HEMOGLOBIN 6.9 g/dL (13.5-17.5)
[2019-11-17 07:47] LABS: CALCIUM, SERUM 8.3 mg/dL (8.5-10.1); CREATININE 1.1 mg/dL (0.6-1.3); MAGNESIUM 1.5 mg/dL (1.8-2.4); PHOSPHORUS 4.2 mg/dL (2.5-4.9); POTASSIUM 4.1 mmol/L (3.5-5.1)
[2019-11-17] MEDS: DOCUSATE SODIUM LIQ 100 MG/10 ML UDC GT SCH (08:45)
[2019-11-17] MEDS: CHLORHEXIDINE GLUCONATE 15 ML UDC MM SCH ×2 (08:45→21:13)
[2019-11-17] MEDS: PANTOPRAZOLE 40 MG VIAL IV SCH ×2 (08:45→17:54)
[2019-11-17] MEDS: CALCIUM CARBONATE (1250) 500 MG TABLET GT SCH (08:46)
[2019-11-17] MEDS: FERROUS SULFATE UDC 300 MG/5 ML UDC GT SCH ×3 (08:46→17:54)
[2019-11-17] MEDS: PROSOURCE / PROSTAT (PYXIS) 30 ML UDC GT SCH ×3 (08:46→17:54)
[2019-11-17] MEDS: ASCORBIC ACID 500 MG TABLET GT SCH (08:46)
[2019-11-17] MEDS: METOPROLOL TARTRATE 25 MG TABLET GT SCH ×2 (08:46→17:54)
[2019-11-17] MEDS: LEVETIRACETAM SOL (5 ML) 100 MG/ML UDC GT SCH ×2 (08:46→21:13)
[2019-11-17] MEDS: MULTIVIT W/MINERALS 1 TAB TABLET GT SCH (08:46)
[2019-11-17] MEDS: DAKINS QUARTER STRENGTH (0.125%) 480 ML BOTTLE TOP SCH (08:47)
[2019-11-17] MEDS: MUPIROCIN OINT 2% 22 GM TUBE SCH ×2 (08:47→21:13)
[2019-11-17] MEDS: LINEZOLID RTU BAG 600 MG in PREMIX 1 EA IV SCH (08:47)
[2019-11-17] MEDS: AMIKACIN 300 MG in IV D5W 100 ML IV SCH (11:06)
[2019-11-17] MEDS: Magnesium 1GM/D5W 100ML PREMIX 100 ML IV SCH ×2 (12:18→13:20)
--- NOTE | 2019-11-17 13:34 | NUR ---
MS RN NOTES CALLED [facility] PATIENTS NEXT OF KIN TO GET CONSENT FOR BLOOD TRANSFUSION. LEFT MESSAGE TO CALL BACK.
[2019-11-17] MEDS: SOD FERRIC GLUC 125 MG in IV NS 0.9% 100 ML IV SCH (15:55)
[2019-11-17] MEDS ORDERED: CHLORHEXIDINE GLUCONATE 4% 118 ML BOTTLE TP SCH (16:00)
[2019-11-17] MEDS: CEFAZOLIN 1 GM in IV D5W 50 ML IV SCH (18:49)
[2019-11-17] MEDS: IV NS 0.9% 1,000 ML IV PRN (18:50)
--- NOTE | 2019-11-17 19:28 | NUR ---
MS RN NOTES PATIENT IN BED RESTING NO SOB OR ACUTE DISTRESS NOTED. ALL DUE MEDICATIONS ADMINISTERED. ALL NEEDS MET. SPOKE TO PATIENTS COUSIN OBTAINED CONSENT FOR BLOOD VIA TELEPHONE WITH WITNESS. NO ACUTE CHANGES NOTED DURING SHIFT. ENDORSED CARE TO PM SHIFT.
--- NOTE | 2019-11-17 19:30 | NUR ---
MS RN OPENING NOTE RECEIVED PATIENT IN BED RESTING WITH HOB ELEVATED. OBTUNDED. ON TRACH.ON COOL AEROSOL , SUCTION SECRETION DONE , BREATHING EVEN AND NON LABORED. NO SOB NOTED. GTF TWO TERRY FEEDING . ON AND RUNNING AT 40 ML/HR.NO RESIDUAL NOTED . ON [place]. URINE IS CLEAR AND YELLOW IN COLOR. PT IN NO APPARENT DISTRESS NOTED AT THIS TIME. BED IS LOWERED AND LOCKED FOR SAFETY. WILL CONTINUE TO MONITOR.V/S STABLE AFEBRILE , TURNED AND REPOSITION ON CONTACT ISOLATION PRECAUTIONARY MEASURES OBSERVE AT ALL TIMES. ALL DUE MEDS GIVEN ORDERED .WILL CONTINUE TO MONITOR PTS.
--- NOTE | 2019-11-17 20:09 | NUR ---
MS RN NOTES I UNIT OF PRBC STARTED ORDERED , CHECKED WITH ANOTHER NURSE , NO ASE NOTED INFUSING WELL TOLERATED BY PT.V/S RECORDED ,WILL CONTINUE TO MONITOR PTS.
[2019-11-17] MEDS ORDERED: LINEZOLID 600 MG TABLET GT SCH (21:00)
[2019-11-17] MEDS: ATORVASTATIN 10 MG TABLET GT SCH (21:13)
--- NOTE | 2019-11-17 23:27 | NUR ---
MS RN NOTES I UNIT OF PRBC COMPLETED WELL TOLERATED BY PT WITH NO ASE NOTED V/S STABLE AFEBRILE.WILL CONTINUE TO MONITOR PT.
[2019-11-18] MEDS: CEFAZOLIN 1 GM in IV D5W 50 ML IV SCH ×5 (00:20→23:53)
[2019-11-18] MEDS: IPRATROPIUM NEB FS 0.5 MG/2.5 ML AMPUL.NEB NEB SCH ×4 (01:29→19:39)
[2019-11-18] MEDS: ALBUTEROL FS 2.5 MG/3 ML VIAL.NEB NEB SCH ×4 (01:29→19:39)
[2019-11-18 04:00] VITALS: BP 107/76
[2019-11-18] MEDS: TWOCAL HN 1,000 ML LIQUID GT PRN (04:35)
--- NOTE | 2019-11-18 04:54 | NUR ---
RT NOTE Pt rec'd trached on mech vent on AC mode. Pt shows no signs of resp distress or sob. Trach is patent and secured. Pt sx'd for thick large amt of pale yellow secretions. Alarms are set and audible. Vent plugged into red outlet. Ambu bag bedside. Will continue to monitor.
--- NOTE | 2019-11-18 06:32 | NUR ---
MS RN NOTES PT REMAINS IN BED , ON COOL AEROSOL TOLERATED WELL , NO MALIK NOTED AT THIS TIME , WILL ENDORSE TO RN DAY SHIFT FOR CONTINUITY OF CARE FOR AM LABS TODAY.
[2019-11-18 07:16] LABS: BASOPHILS # (AUTO) 0.1 /CMM (0.0-0.2); BASOPHILS % (AUTO) 0.7 % (0.0-2.0); EOSINOPHILS % (AUTO) 4.6 % (0.0-6.0); HEMATOCRIT 29 % (39-51); HEMOGLOBIN 9.3 g/dL (13.5-17.5); LYMPHOCYTES # (AUTO) 1.3 /CMM (0.8-4.8); LYMPHOCYTES % (AUTO) 15.9 % (20.0-44.0); MEAN CORPUSCULAR HGB CONC 32 g/dl (31.0-36.0); MEAN CORPUSCULAR VOLUME 91 fL (80-96); MONOCYTES # (AUTO) 0.6 /CMM (0.1-1.30); MONOCYTES % (AUTO) 7.8 % (2.0-12.0); NEUTROPHILS # (AUTO) 5.7 /CMM (1.8-8.9); PLATELET COUNT (AUTO) 270 /CMM (150-450); RED BLOOD CELL COUNT(AUTO) 3.14 MIL/uL (4.5-6.0)
[2019-11-18 07:24] LABS: CALCIUM, SERUM 8.8 mg/dL (8.5-10.1); CREATININE 1.1 mg/dL (0.6-1.3); MAGNESIUM 1.9 mg/dL (1.8-2.4); PHOSPHORUS 4.4 mg/dL (2.5-4.9); POTASSIUM 4.4 mmol/L (3.5-5.1)
--- NOTE | 2019-11-18 07:24 | NUR ---
RN MS OPENING NOTES RECEIVED PATIENT IN BED RESTING WITH HOB ELEVATED. OBTUNDED. ON TRACH.ON COOL AEROSOL , BREATHING EVEN AND NON LABORED. NO SOB NOTED. GTF TWO TERRY FEEDING @40ML/HR WITH 900ML REMAINING ON THE CONTAINER. INTACT, PATENT AND FLUSHED WELL. NO RESIDUAL NOTED . ON [place] WITH 600 CC OF CLEAR AND YELLOW IN COLOR URINE ON THE BAG. PT IN NO APPARENT DISTRESS NOTED AT THIS TIME. BED IS LOWERED AND LOCKED FOR SAFETY. WILL CONTINUE TO MONITOR.
[2019-11-18 08:00] VITALS: BP 111/77
[2019-11-18] MEDS: CHLORHEXIDINE GLUCONATE 15 ML UDC MM SCH ×2 (08:26→21:21)
[2019-11-18] MEDS: CALCIUM CARBONATE (1250) 500 MG TABLET GT SCH (08:27)
[2019-11-18] MEDS: DOCUSATE SODIUM LIQ 100 MG/10 ML UDC GT SCH (08:27)
[2019-11-18] MEDS: PANTOPRAZOLE 40 MG VIAL IV SCH ×2 (08:27→17:40)
[2019-11-18] MEDS: METOPROLOL TARTRATE 25 MG TABLET GT SCH ×2 (08:27→17:00)
[2019-11-18] MEDS: ASCORBIC ACID 500 MG TABLET GT SCH (08:27)
[2019-11-18] MEDS: FERROUS SULFATE UDC 300 MG/5 ML UDC GT SCH ×3 (08:27→17:40)
[2019-11-18] MEDS: LEVETIRACETAM SOL (5 ML) 100 MG/ML UDC GT SCH ×2 (08:27→21:21)
[2019-11-18] MEDS: MULTIVIT W/MINERALS 1 TAB TABLET GT SCH (08:27)
[2019-11-18] MEDS: DAKINS QUARTER STRENGTH (0.125%) 480 ML BOTTLE TOP SCH (08:56)
[2019-11-18] MEDS: MUPIROCIN OINT 2% 22 GM TUBE SCH ×2 (08:56→21:21)
[2019-11-18] MEDS: PROSOURCE / PROSTAT (PYXIS) 30 ML UDC GT SCH ×3 (08:57→17:57)
[2019-11-18] MEDS: ACETAMINOPHEN 325 MG TABLET MC PRN (11:59)
[2019-11-18 12:00] VITALS: BP 114/75
[2019-11-18] MEDS ORDERED: CEFA1FRO IV (13:09)
[2019-11-18] MEDS ORDERED: MUPI22OI7 MC (13:09)
[2019-11-18] MEDS: SOD FERRIC GLUC 125 MG in IV NS 0.9% 100 ML IV SCH (14:24)
--- NOTE | 2019-11-18 14:46 | NUR ---
RN NOTES NOTIFIED EDGER SAW OPERATOR LAYLA BENJAMIN THAT THE G-TUBE WAS OUT. NOTICED THAT BALLOON WAS ALREADY OUT AND INTACT. NOTIFIED CHARGE NURSE AND TRIED TO CHECK IF IT'S STILL IN PLACE, BUT IT WAS LEAKING WHEN SHE TRIED TO FLUSHED. PER LAYLA TO HOLD FEEDING, NPO, AND SHE WILL CONTACT GI MD.
[2019-11-18 16:00] VITALS: BP 92/55
--- NOTE | 2019-11-18 16:25 | NUR ---
RN NOTES DR JARRETT AT BEDSIDE, REINSERTED THE GTUBE. PER MD TO RESUME FEEDING. CHECKED PLACEMENT, NO RESIDUAL NOTED. CHARGE NURSE MADE AWARE
[2019-11-18] MEDS: IV NS 0.9% 1,000 ML IV PRN (18:05)
--- NOTE | 2019-11-18 18:53 | NUR ---
RN NOTES BUCKLE ASSEMBLER LAYLA MADE AWARE THAT THE GTUBE WAS ALREADY IN PLACE. PER LAYLA TO RESTART THE FEEDING @10ML AND INCREASE BY 10ML Q4H UNTIL 40ML IS REACH.
--- NOTE | 2019-11-18 19:30 | NUR ---
MS RN NOTES RECEIVED PATIENT IN BED RESTING WITH HOB ELEVATED. OBTUNDED. ON TRACH.ON COOL AEROSOL , SUCTION SECRETION DONE , BREATHING EVEN AND NON LABORED. NO SOB NOTED. GTF TWO TERRY FEEDING . ON AND RUNNING AT 20 ML/HR.NO RESIDUAL NOTED . ON [place]. URINE IS CLEAR AND YELLOW IN COLOR. PT IN NO APPARENT DISTRESS NOTED AT THIS TIME. BED IS LOWERED AND LOCKED FOR SAFETY. WILL CONTINUE TO MONITOR.V/S STABLE AFEBRILE , TURNED AND REPOSITION ON CONTACT ISOLATION PRECAUTIONARY MEASURES OBSERVE AT ALL TIMES. ALL DUE MEDS GIVEN ORDERED .WILL CONTINUE TO MONITOR PTS.
--- NOTE | 2019-11-18 19:35 | NUR ---
RN CLOSING NOTES PATIENT IN BED, IN NO APPARENT DISTRESS NOTED. ON COOL AEROSOL , TOLERATED WELL. GTUBE IN PLACED, INTACT, FLUSHED WELL WITH NO RESIDUAL NOTED RUNNING 2CAL @10ML/HR. MU[place] CATH INTACT, DRAINING VIA GRAVITY OF YELLOW COLOR URINE. SAFETY PRECAUTIONS IN PLACED, CALL LIGHT WITHIN REACH. ENDORSED TO PM RN FOR MALIK.
[2019-11-18 20:00] VITALS: BP 108/62
[2019-11-18] MEDS: ATORVASTATIN 10 MG TABLET GT SCH (21:21)
--- NOTE | 2019-11-19 | NUR ---
RN NOTES GT FEEDING TWOCAL INCREASE TO 30CC /HR TOLERATED WELL ,NO RESIDUAL NOTED ,HOB ELEVATED AT ALL TIME FOR ASPIRATION PRECAUTION.
[2019-11-19] MEDS: IPRATROPIUM NEB FS 0.5 MG/2.5 ML AMPUL.NEB NEB SCH ×4 (01:46→19:55)
[2019-11-19] MEDS: ALBUTEROL FS 2.5 MG/3 ML VIAL.NEB NEB SCH ×4 (01:46→19:55)
[2019-11-19 04:00] VITALS: BP 106/71
[2019-11-19] MEDS: ACETAMINOPHEN 325 MG TABLET MC PRN (05:07)
[2019-11-19] MEDS: CEFAZOLIN 1 GM in IV D5W 50 ML IV SCH ×3 (05:10→17:03)
[2019-11-19 08:00] VITALS: BP 112/80
[2019-11-19 08:33] LABS: CALCIUM, SERUM 8.9 mg/dL (8.5-10.1); CREATININE 1.2 mg/dL (0.6-1.3); POTASSIUM 4.3 mmol/L (3.5-5.1)
[2019-11-19] MEDS: ASCORBIC ACID 500 MG TABLET GT SCH (08:34)
[2019-11-19] MEDS: CALCIUM CARBONATE (1250) 500 MG TABLET GT SCH (08:34)
[2019-11-19] MEDS: METOPROLOL TARTRATE 25 MG TABLET GT SCH ×2 (08:34→17:03)
[2019-11-19] MEDS: MULTIVIT W/MINERALS 1 TAB TABLET GT SCH (08:35)
[2019-11-19] MEDS: PROSOURCE / PROSTAT (PYXIS) 30 ML UDC GT SCH ×3 (08:38→17:03)
[2019-11-19] MEDS: DOCUSATE SODIUM LIQ 100 MG/10 ML UDC GT SCH (08:47)
[2019-11-19] MEDS: FERROUS SULFATE UDC 300 MG/5 ML UDC GT SCH ×3 (08:47→17:02)
[2019-11-19] MEDS: PANTOPRAZOLE 40 MG VIAL IV SCH ×2 (08:48→17:02)
[2019-11-19] MEDS: LEVETIRACETAM SOL (5 ML) 100 MG/ML UDC GT SCH ×2 (08:48→21:49)
[2019-11-19] MEDS: CHLORHEXIDINE GLUCONATE 15 ML UDC MM SCH ×2 (08:48→21:49)
[2019-11-19] MEDS: MUPIROCIN OINT 2% 22 GM TUBE SCH ×2 (08:50→21:50)
[2019-11-19] MEDS: DAKINS QUARTER STRENGTH (0.125%) 480 ML BOTTLE TOP SCH (08:50)
[2019-11-19] MEDS: IV NS 0.9% 1,000 ML IV PRN (09:37)
--- NOTE | 2019-11-19 10:25 | NUR ---
MS RN NOTES GTUBE SITE IS LEAKING NOTIFIED FILM WASHER LAYLA AND SHE ORDERED TO DECREASE THE TUBE FEEDING FROM 40ML/HR TO 20ML/HR.
[2019-11-19 12:00] VITALS: BP 112/80
--- NOTE | 2019-11-19 13:35 | NUR ---
MS RN NOTES DR JARRETT VISITED PATIENT. ORDERED; REGLAN IV 10 MG Q6 H AND PROTONIX 40 MG IV BID. DECREASE THE FEEDING RATE AND INCREASE HOB ALL TIME.
[2019-11-19] MEDS: TWOCAL HN 1,000 ML LIQUID GT PRN (14:22)
[2019-11-19] MEDS: METOCLOPRAMIDE HCL 10 MG/2 ML VIAL IV SCH ×2 (15:08→21:49)
[2019-11-19] MEDS: SOD FERRIC GLUC 125 MG in IV NS 0.9% 100 ML IV SCH (15:17)
[2019-11-19 16:00] VITALS: BP 116/69
[2019-11-19] MEDS ORDERED: PANTOPRAZOLE 40 MG VIAL IV SCH (17:00)
--- NOTE | 2019-11-19 19:20 | NUR ---
MS RN NOTES PATIENT IN BED A/OX1-2 , GTUBE SITE LEAKING. FEEDING DECREASE TO 20 ML/HR. NO SOB OR DISCOMFORT NOTED AT THIS TIME. BED AT THE LOWEST POSITION LOCKED. CALL LIGHT WITHIN REACH. ENDORSED TO SOAP SLABBER NURSE FOR MALIK.
[2019-11-19] MEDS ORDERED: TPN/PPN PER PHARMACY IV PRN (19:30)
[2019-11-19 20:00] VITALS: BP 101/74
[2019-11-19] MEDS: ATORVASTATIN 10 MG TABLET GT SCH (21:50)
[2019-11-20] MEDS: CEFAZOLIN 1 GM in IV D5W 50 ML IV SCH ×4 (00:21→20:52)
[2019-11-20] MEDS: IV NS 0.9% 1,000 ML IV PRN ×2 (00:21→14:27)
[2019-11-20] MEDS: ALBUTEROL FS 2.5 MG/3 ML VIAL.NEB NEB SCH ×4 (01:13→19:37)
[2019-11-20] MEDS: IPRATROPIUM NEB FS 0.5 MG/2.5 ML AMPUL.NEB NEB SCH ×4 (01:13→19:37)
[2019-11-20] MEDS: METOCLOPRAMIDE HCL 10 MG/2 ML VIAL IV SCH ×4 (03:30→20:52)
[2019-11-20 04:00] VITALS: BP 96/65
--- NOTE | 2019-11-20 06:45 | NUR ---
RN NOTES, NO SIGNIFICANT CHANGE IN CONDITION, AFEBRILE, AND MINIMAL LEAKING NOTED IN GT SITE, WITH STABLE VS, WILL ENDORSE CONTINUITY OF CARE TO ONCOMING NURSE.
[2019-11-20 06:57] LABS: BASOPHILS # (AUTO) 0.1 /CMM (0.0-0.2); BASOPHILS % (AUTO) 0.9 % (0.0-2.0); EOSINOPHILS % (AUTO) 3.3 % (0.0-6.0); HEMATOCRIT 26 % (39-51); HEMOGLOBIN 8.4 g/dL (13.5-17.5); LYMPHOCYTES # (AUTO) 1.4 /CMM (0.8-4.8); LYMPHOCYTES % (AUTO) 15.4 % (20.0-44.0); MEAN CORPUSCULAR HGB CONC 32 g/dl (31.0-36.0); MEAN CORPUSCULAR VOLUME 92 fL (80-96); MONOCYTES # (AUTO) 0.8 /CMM (0.1-1.30); MONOCYTES % (AUTO) 8.7 % (2.0-12.0); NEUTROPHILS # (AUTO) 6.7 /CMM (1.8-8.9); NEUTROPHILS % (AUTO) 71.7 % (43.0-81.0); PLATELET COUNT (AUTO) 363 /CMM (150-450); RED BLOOD CELL COUNT(AUTO) 2.82 MIL/uL (4.5-6.0); WHITE BLOOD COUNT (AUTO) 9.3 K/uL (4.3-11.0)
[2019-11-20 07:20] LABS: CALCIUM, SERUM 9.4 mg/dL (8.5-10.1); CREATININE 1.2 mg/dL (0.6-1.3); MAGNESIUM 1.8 mg/dL (1.8-2.4); PHOSPHORUS 3.8 mg/dL (2.5-4.9); POTASSIUM 4.1 mmol/L (3.5-5.1)
--- NOTE | 2019-11-20 07:44 | NUR ---
rn opening notes Patient received on cool aerosol 35%, portex 7. A/O x1, no s/s of pain at this time. 2 satish @ 20 cc per hour running. R AC 22 and L RA 18 present, NS @ 0.9% 75 ml per hour running. Bed at the lowest setting, call light within reach, side rails up x2.
[2019-11-20 08:00] VITALS: BP 116/78
[2019-11-20] MEDS: CHLORHEXIDINE GLUCONATE 15 ML UDC MM SCH ×2 (08:48→21:30)
[2019-11-20] MEDS: ASCORBIC ACID 500 MG TABLET GT SCH (08:49)
[2019-11-20] MEDS: CALCIUM CARBONATE (1250) 500 MG TABLET GT SCH (08:49)
[2019-11-20] MEDS: MULTIVIT W/MINERALS 1 TAB TABLET GT SCH (08:49)
[2019-11-20] MEDS: LEVETIRACETAM SOL (5 ML) 100 MG/ML UDC GT SCH ×3 (08:49→21:00)
[2019-11-20] MEDS: DOCUSATE SODIUM LIQ 100 MG/10 ML UDC GT SCH (08:49)
[2019-11-20] MEDS: FERROUS SULFATE UDC 300 MG/5 ML UDC GT SCH ×3 (08:49→16:33)
[2019-11-20] MEDS: METOPROLOL TARTRATE 25 MG TABLET GT SCH ×2 (08:50→16:34)
[2019-11-20] MEDS: PROSOURCE / PROSTAT (PYXIS) 30 ML UDC GT SCH ×3 (08:50→16:34)
[2019-11-20] MEDS: PANTOPRAZOLE 40 MG VIAL IV SCH ×2 (08:50→16:37)
[2019-11-20] MEDS: DAKINS QUARTER STRENGTH (0.125%) 480 ML BOTTLE TOP SCH (08:51)
[2019-11-20] MEDS: MUPIROCIN OINT 2% 22 GM TUBE SCH ×2 (08:51→21:27)
[2019-11-20] MEDS: ACETAMINOPHEN 325 MG TABLET MC PRN (09:31)
[2019-11-20] MEDS ORDERED: FEE TPN 1 MIN EA MC ONE (10:59)
[2019-11-20] MEDS ORDERED: TPN BAG #1 IV PRN ×5 (11:00)
[2019-11-20] MEDS ORDERED: INSULIN REGULAR, HUMAN 100 UNIT/ML 3 ML VIAL SQ PRN ×2 (11:00→15:00)
[2019-11-20] MEDS ORDERED: DEXTROSE 50%-WATER 50 ML DISP.SYRIN IV PRN ×2 (11:00→15:00)
[2019-11-20 11:26] LABS: PREALBUMIN 20.6 MG/DL (18.0-35.7)
[2019-11-20 12:00] VITALS: BP 107/71
[2019-11-20] MEDS ORDERED: BLOOD SUGAR DIAGNOSTIC 1 EACH STRIP IN SCH ×2 (12:00→18:00)
[2019-11-20] MEDS: ACETAMINOPHEN 650 MG/SUPP.RECT RC PRN ×2 (14:15→17:22)
[2019-11-20] MEDS ORDERED: CEFA1PIG IV (14:31)
[2019-11-20] MEDS ORDERED: MUPI22OI7 MC (14:38)
[2019-11-20 16:00] VITALS: BP 95/68
--- NOTE | 2019-11-20 19:30 | NUR ---
RN NOTES, PATIENT IN BED, ASLEEP AT THIS TIME, BUT AROUSES TO TACTILE STIMULI, ON COOL AEROSOL , NO SOB/ACUTE DISTRESS NOTED AT THI TIME, TOLERATED WELL, S/P GT REMOVED, WITH NEW ISHMAEL PICC LINE IN PLACED, [place] CATH INTACT, DRAINING VIA GRAVITY OF YELLOW COLOR URINE, WILL BE DC TONIGHT, AWAITING FOR TRANSPORTATION, SAFETY PRECAUTIONS IN PLACED, CALL LIGHT WITHIN REACH, WILL CONTINUE TO MONITOR CLOSELY. .
[2019-11-20 20:00] VITALS: BP 112/80
--- NOTE | 2019-11-20 20:25 | NUR ---
RN NOTES, PATIENT NOTED FEBRILE WITH BODY TEMP 100.2 F, LAYLA CROWELL INFORMED AND PER HER TO HOLD THE DC, NOTED AND CARRIED OUT.
[2019-11-20] MEDS: ATORVASTATIN 10 MG TABLET GT SCH (21:30)
--- NOTE | 2019-11-20 21:31 | NUR ---
RN NOTES, PATIENT NPO KEPPRA AND LIPITOR GT NOT ADMINISTERED DUE TO PATIENT S/P GT REMOVAL TODAY.
[2019-11-21] MEDS: IPRATROPIUM NEB FS 0.5 MG/2.5 ML AMPUL.NEB NEB SCH ×3 (01:22→14:57)
[2019-11-21] MEDS: ALBUTEROL FS 2.5 MG/3 ML VIAL.NEB NEB SCH ×3 (01:22→14:57)
[2019-11-21 04:00] VITALS: BP 111/82
[2019-11-21] MEDS: METOCLOPRAMIDE HCL 10 MG/2 ML VIAL IV SCH ×3 (04:25→16:10)
[2019-11-21] MEDS: CEFAZOLIN 1 GM in IV D5W 50 ML IV SCH ×2 (04:26→12:50)
[2019-11-21] MEDS: IV NS 0.9% 1,000 ML IV PRN (05:22)
[2019-11-21 06:26] VITALS: BP 112/80
[2019-11-21 06:27] VITALS: BP 111/82
--- NOTE | 2019-11-21 06:54 | NUR ---
RN NOTES, PATIENT IN BED, ON COOL AEROSOL, TOLERATED WELL, WITH EXCESSIVE SECRETIONS, SUCTIONING DONE NEEDED, FEBRILE LAST NIGHT AND PER LAYLA BENJAMIN TO HOLD THE DC LAST NIGHT, THE REST OF THE NIGHT PATIENT REMAINED AFEBRILE, HOB ELEVATED FOR ASPIRATION PRECAUTION, ALL SAFETY MEASURES IN PLACED, S/R OF BED ORDERED, S/P GT REMOVAL YESTERDAY, NO BLEEDING OR ABNORMALITY NOTED AT SITE, WILL ENDORSE CONTINUITY OF CARE TO ONCOMING NURSE.
[2019-11-21 07:24] LABS: BASOPHILS # (AUTO) 0.1 /CMM (0.0-0.2); BASOPHILS % (AUTO) 1.2 % (0.0-2.0); HEMATOCRIT 27 % (39-51); HEMOGLOBIN 8.8 g/dL (13.5-17.5); LYMPHOCYTES # (AUTO) 1.2 /CMM (0.8-4.8); LYMPHOCYTES % (AUTO) 15.2 % (20.0-44.0); MEAN CORPUSCULAR HGB CONC 32 g/dl (31.0-36.0); MEAN CORPUSCULAR VOLUME 92 fL (80-96); MONOCYTES # (AUTO) 0.8 /CMM (0.1-1.30); MONOCYTES % (AUTO) 10.4 % (2.0-12.0); NEUTROPHILS # (AUTO) 5.4 /CMM (1.8-8.9); NEUTROPHILS % (AUTO) 70.2 % (43.0-81.0); PLATELET COUNT (AUTO) 405 /CMM (150-450); RED BLOOD CELL COUNT(AUTO) 2.96 MIL/uL (4.5-6.0); WHITE BLOOD COUNT (AUTO) 7.7 K/uL (4.3-11.0)
[2019-11-21 08:00] VITALS: BP 130/71
[2019-11-21 08:23] LABS: CALCIUM, SERUM 9.6 mg/dL (8.5-10.1); CREATININE 1.2 mg/dL (0.6-1.3); MAGNESIUM 1.7 mg/dL (1.8-2.4); PHOSPHORUS 3.9 mg/dL (2.5-4.9); POTASSIUM 3.6 mmol/L (3.5-5.1)
[2019-11-21] MEDS: DOCUSATE SODIUM LIQ 100 MG/10 ML UDC GT SCH (08:29)
[2019-11-21] MEDS: FERROUS SULFATE UDC 300 MG/5 ML UDC GT SCH ×3 (08:29→16:10)
[2019-11-21] MEDS: LEVETIRACETAM SOL (5 ML) 100 MG/ML UDC GT SCH (08:30)
[2019-11-21] MEDS: PROSOURCE / PROSTAT (PYXIS) 30 ML UDC GT SCH ×3 (08:30→16:10)
[2019-11-21] MEDS: CALCIUM CARBONATE (1250) 500 MG TABLET GT SCH (08:30)
[2019-11-21] MEDS: METOPROLOL TARTRATE 25 MG TABLET GT SCH ×2 (08:30→16:10)
[2019-11-21] MEDS: ASCORBIC ACID 500 MG TABLET GT SCH (08:31)
[2019-11-21] MEDS: MULTIVIT W/MINERALS 1 TAB TABLET GT SCH (08:31)
[2019-11-21] MEDS: CHLORHEXIDINE GLUCONATE 15 ML UDC MM SCH (08:38)
[2019-11-21] MEDS: PANTOPRAZOLE 40 MG VIAL IV SCH ×2 (08:38→16:10)
[2019-11-21] MEDS: MUPIROCIN OINT 2% 22 GM TUBE SCH (08:40)
[2019-11-21] MEDS: DAKINS QUARTER STRENGTH (0.125%) 480 ML BOTTLE TOP SCH (08:40)
[2019-11-21] MEDS: Magnesium 1GM/D5W 100ML PREMIX 100 ML IV SCH ×2 (13:37→14:49)
[2019-11-21] MEDS ORDERED: LEVE500T9 IV (13:40)
[2019-11-21] MEDS ORDERED: LEVETIRACETAM (500MG) 500 MG in IV NS 0.9% 100 ML IV SCH (14:00)
[2019-11-21 16:00] VITALS: BP_SYST 130; BP_DIAS 70; BP_DIAS 76
--- NOTE | 2019-11-21 17:26 | NUR ---
RN NOTE: PATIENT DISCHARGE TO [facility], OPEN EYES TO VERBAL & TACTILE STIMULI, OBTUNDED. TRAC, COOL AEROSOL, SETTINGS TOLERATED WELL. [place] CATH INTACT, DRAINING WELL WITH GRAVITY. PICC LINE TO RIGHT UPPER ARM, ABLE TO FLUSH WITH GOOD BLOOD RETURN. DISCHARGE WITH MU[place]AMMAD CATH & PICC LINE PER MD ORDERS. WOUND TREATMENT DONE PRIOR TO DISCHARGE. S/P GTUBE REMOVAL SITE, KEPT CLEAN & DRY, DRESSING CHANGED. REPORT GIVEN TO [facility] RN AT [facility]. PATIENT PICKED UP BY AMBULANCE. NO BELONGINGS PRESENT. LEFT MASSAGE TO [facility] AT .
--- NOTE | 2019-11-21 19:28 | NUR ---
SNF NOTIFIED C/O CLARIBEAO BY ELSY COLLINS TO START D5NS AT 60 ML/HR AND ONCE TPN STARTED PER SNF PROTOCOL OK TO DISCONTINUE IVF.
== END 2019-11-21 17:17 | DRG 710 ==
LOC: ER 00:54 → TELE 02:25 → TELE-TD 03:54 → TELE1 12:42 → MEDSG1 11-16 11:08
PROVIDERS: ADMIT Registered Nurse; ATTEND Registered Nurse
PROC: 0KBN0ZZ Excision of Right Hip Muscle, Open Approach (ICD-10-PCS; principal; 2019-11-15)
PROC: 30233N1 Transfusion of Nonautologous Red Blood Cells into Peripheral Vein, Percutaneous Approach (ICD-10-PCS; 2019-11-17)
DX: A41.89 Other specified sepsis (principal); I21.A1 Myocardial infarction type 2; J96.20 Acute and chronic respiratory failure, unspecified whether with hypoxia or hypercapnia; N17.0 Acute kidney failure with tubular necrosis; Z99.11 Dependence on respirator [ventilator] status; J18.9 Pneumonia, unspecified organism; G82.50 Quadriplegia, unspecified; E44.0 Moderate protein-calorie malnutrition; L89.154 Pressure ulcer of sacral region, stage 4; L89.214 Pressure ulcer of right hip, stage 4; G92 Toxic encephalopathy; E86.0 Dehydration; N39.0 Urinary tract infection, site not specified; K21.9 Gastro-esophageal reflux disease without esophagitis; D63.1 Anemia in chronic kidney disease; E78.5 Hyperlipidemia, unspecified; G40.909 Epilepsy, unspecified, not intractable, without status epilepticus; I12.9 Hypertensive chronic kidney disease with stage 1 through stage 4 chronic kidney disease, or unspecified chronic kidney disease; N18.9 Chronic kidney disease, unspecified; R13.10 Dysphagia, unspecified; R65.20 Severe sepsis without septic shock; Z87.440 Personal history of urinary (tract) infections; Z86.73 Personal history of transient ischemic attack (TIA), and cerebral infarction without residual deficits; Z79.01 Long term (current) use of anticoagulants; Z86.14 Personal history of Methicillin resistant Staphylococcus aureus infection; J98.11 Atelectasis; L30.4 Erythema intertrigo; M24.551 Contracture, right hip; M24.552 Contracture, left hip; Y95 Nosocomial condition; D47.3 Essential (hemorrhagic) thrombocythemia; K94.23 Gastrostomy malfunction; Y83.3 Surgical operation with formation of external stoma as the cause of abnormal reaction of the patient, or of later complication, without mention of misadventure at the time of the procedure; Y92.89 Other specified places as the place of occurrence of the external cause
CPT/HCPCS: 31720; 36415; 71045-TC; 80048-TC; 80076-TC; 80150; 81000-TC; 82010-TC; 82272-TC; 82728-TC; 83540-TC; 83605-TC; 83735-TC; 84100-TC; 84134-TC; 84478-TC; 84484-TC; 85025-TC; 85730-TC; 86850-TC; 86921-TC; 87040-TC; 87081-TC; 87086-TC; 87186-TC; 94640-TC; 94668-TC; 94760-TC; 94762-TC; A4216; A6253; A6403; A7526; C1751; C9113; G0378; J0278; J0690; J0696; J0770; J1815; J1953; J2020; J2060; J2543; J2765; J2916; J3370; J3475; J3490; J7030; J7040; J7060; P9016-BL

== ENCOUNTER 2019-12-06 16:34 | Inpatient (IN) | payer MEDICAID ==
[~2019-12-06] VITALS: Ht 152.4 cm; Wt 60.8 kg
[~2019-12-06 16:34] MED LIST changes: -ACET-2605 GT; +AMIN887L GT; +CEFA1PIG IV; +CHLO118L6 TP; -FOLI0.8T GT; -LEVE100S GT; +LEVE500T9 IV; -LORA10TA7 GT; +MAG30ORA GT; +MUPI22OI7 MC; -OMEP20CA15 GT; -PIPE3.376 IV; -SACC250C GT
[2019-12-06] MEDS ORDERED: LEVE100S GT (16:52)
--- NOTE | 2019-12-06 16:58 | NUR ---
RN -ER PATIENT IS OBTUNDED. PATIENT OPENES EYES BUT UNABLE TO FOLLOW AND MOVES AROUND. PATIENT IS TRACHED. PATIENT IS A GTUBE AND NEEDS TO BE REPLACED. PATIENT HAS A SKIN HAS MULTIPLE SCARINGS. PATIENT IS CONTRACTED. PATIENT HAS A RIGHT BUTT CHECK ULCER 2.5 BY 2.5 CM WITH TUNNELING . POSSIBLE STAGE 2/3 , ALSO RIGHT BIG TOE WOUND
[2019-12-06 17:49] LABS: BASOPHILS # (AUTO) 0.1 /CMM (0.0-0.2); BASOPHILS % (AUTO) 0.8 % (0.0-2.0); EOSINOPHILS % (AUTO) 4.7 % (0.0-6.0); HEMATOCRIT 32 % (39-51); HEMOGLOBIN 10.4 g/dL (13.5-17.5); LYMPHOCYTES # (AUTO) 1.2 /CMM (0.8-4.8); LYMPHOCYTES % (AUTO) 11.3 % (20.0-44.0); MEAN CORPUSCULAR HGB CONC 33 g/dl (31.0-36.0); MEAN CORPUSCULAR VOLUME 92 fL (80-96); MONOCYTES # (AUTO) 0.5 /CMM (0.1-1.30); MONOCYTES % (AUTO) 5.3 % (2.0-12.0); NEUTROPHILS # (AUTO) 8.1 /CMM (1.8-8.9); NEUTROPHILS % (AUTO) 77.9 % (43.0-81.0); PLATELET COUNT (AUTO) 172 /CMM (150-450); WHITE BLOOD COUNT (AUTO) 10.4 K/uL (4.3-11.0)
[2019-12-06 18:07] LABS: CALCIUM, SERUM 10.1 mg/dL (8.5-10.1); POTASSIUM 3.6 mmol/L (3.5-5.1)
[2019-12-06 18:13] LABS: ALBUMIN 2.8 g/dL (3.4-5.0); BILIRUBIN,DIRECT 0.5 mg/dL (0.0-0.2); BILIRUBIN,TOTAL 0.9 mg/dL (0.2-1.0); TOTAL PROTEIN, SERUM 8.8 g/dL (6.4-8.2)
--- NOTE | 2019-12-06 18:26 | NUR ---
CALLED NURSING SUP FOR M/S BED.
[2019-12-06] MEDS ORDERED: IV NS 0.9% 1,000 ML BAG IV ONE (18:30)
--- NOTE | 2019-12-06 19:15 | NUR ---
PAGED [facility].
[2019-12-06 19:30] VITALS: BP 159/79
--- NOTE | 2019-12-06 19:46 | NUR ---
NURSING SUP GAVE M/S BED 306.
--- NOTE | 2019-12-06 20:09 | NUR ---
XFER TO MS3 . REPORT GIVEN TO BRUCE .
[2019-12-06 20:50] VITALS: BP 146/80
--- NOTE | 2019-12-06 20:50 | NUR ---
MS RN NOTES PATIENT IN BED, AWAKE, NONVERBAL, EYES OPENING. PATIENT IS OBTUNDED. BREATHING EVEN AND UNLABORED ON TRACH COLLAR WITH COOL AEROSOL 28%. SHOWS NO SIGNS OF ACUTE RESPIRATORY DISTRESS, NO ACUTE PAIN. IV ON ISHMAEL PICC AND L WRIST 24G IS CLEAN DRY AND INTACT. SHOWS NO SIGNS OF INFILTRATION, NO REDNESS. COMPLETED SKIN ASSESSMENT AND BELONGINGS CHECKLIST. SAFETY PRECAUTIONS IN PLACE. BED IN LOWEST POSITION, LOCKED, AND CALL LIGHT KEPT WITHIN REACH. WILL CONTINUE TO MONITOR.
--- NOTE | 2019-12-06 21:00 | NUR ---
MS RN NOTES UNABLE TO COMPLETED INITIAL ASSESSMENT. PATIENT IS UNABLE TO ANSWER QUESTION. WILL CONTINUE TO MONITOR.
[2019-12-06] MEDS ORDERED: ACETAMINOPHEN 650 MG/SUPP.RECT RC PRN (21:30)
[2019-12-06] MEDS ORDERED: MINERAL OIL 133 ML (PYXIS) 1 EA ENEMA RC PRN (21:30)
[2019-12-06] MEDS ORDERED: Z GUARD REMEDY 2 OZ OINT TP PRN (21:30)
[2019-12-06] MEDS ORDERED: ONDANSETRON HCL/PF 4 MG/2 ML VIAL IVP PRN (21:30)
[2019-12-06] MEDS ORDERED: DEXTROSE 50%-WATER 50 ML DISP.SYRIN IV PRN (21:30)
[2019-12-06] MEDS ORDERED: BISACODYL SUPP (10 MG) 10 MG/SUPP.RECT SUPP.RECT RC PRN (21:30)
[2019-12-06] MEDS ORDERED: CLONIDINE HCL 0.1MG/24H PTWK 1 EA PATCH TD SCH (21:30)
[2019-12-06] MEDS ORDERED: ALBUTEROL FS 2.5 MG/3 ML VIAL.NEB NEB PRN (21:30)
[2019-12-06] MEDS ORDERED: LEVETIRACETAM (500MG) 500 MG/5 ML VIAL IV ONE (22:10)
[2019-12-06] MEDS: LEVETIRACETAM (500MG) 500 MG in IV NS 0.9% 100 ML IV SCH (22:31)
[2019-12-06 22:50] VITALS: BP 146/80
[2019-12-07] MEDS: BLOOD SUGAR DIAGNOSTIC 1 EACH STRIP IN SCH ×4 (00:33→17:35)
[2019-12-07] MEDS: ALBUTEROL FS 2.5 MG/3 ML VIAL.NEB NEB SCH ×4 (01:30→19:02)
--- NOTE | 2019-12-07 02:01 | NUR ---
TX TRIAGE. NO SIGNS OF RESPIRATORY DISTRESS. THERAPIST TREATING CRITICAL PT IN ICU
[2019-12-07 06:19] LABS: BASOPHILS # (AUTO) 0.1 /CMM (0.0-0.2); BASOPHILS % (AUTO) 0.6 % (0.0-2.0); HEMATOCRIT 33 % (39-51); HEMOGLOBIN 10.5 g/dL (13.5-17.5); LYMPHOCYTES # (AUTO) 1.3 /CMM (0.8-4.8); LYMPHOCYTES % (AUTO) 13.7 % (20.0-44.0); MEAN CORPUSCULAR HGB CONC 32 g/dl (31.0-36.0); MEAN CORPUSCULAR VOLUME 93 fL (80-96); MONOCYTES # (AUTO) 0.8 /CMM (0.1-1.30); MONOCYTES % (AUTO) 8.9 % (2.0-12.0); NEUTROPHILS # (AUTO) 6.8 /CMM (1.8-8.9); NEUTROPHILS % (AUTO) 71.8 % (43.0-81.0); PLATELET COUNT (AUTO) 163 /CMM (150-450); RED BLOOD CELL COUNT(AUTO) 3.54 MIL/uL (4.5-6.0); WHITE BLOOD COUNT (AUTO) 9.5 K/uL (4.3-11.0)
--- NOTE | 2019-12-07 06:30 | NUR ---
MS RN NOTES PATIENT IN BED, NONVERBAL, EYES OPENING. PATIENT IS OBTUNDED. BREATHING EVEN AND UNLABORED ON TRACH COLLAR WITH O2 AT 6L. SHOWS NO SIGNS OF ACUTE RESPIRATORY DISTRESS, NO ACUTE PAIN. IV ON ISHMAEL PICC AND L WRIST 24G IS CLEAN DRY AND INTACT. SHOWS NO SIGNS OF INFILTRATION, NO REDNESS. ALL DUE MEDICATIONS GIVEN. SAFETY PRECAUTIONS IN PLACE. BED IN LOWEST POSITION, LOCKED, AND CALL LIGHT KEPT WITHIN REACH. WILL ENDORSE TO ONCOMING NURSE.
[2019-12-07 06:31] LABS: ALBUMIN 2.6 g/dL (3.4-5.0); CALCIUM, SERUM 10.3 mg/dL (8.5-10.1); MAGNESIUM 1.6 mg/dL (1.8-2.4); PHOSPHORUS 3.4 mg/dL (2.5-4.9); POTASSIUM 3.6 mmol/L (3.5-5.1); TOTAL PROTEIN, SERUM 8.5 g/dL (6.4-8.2)
--- NOTE | 2019-12-07 07:30 | NUR ---
MS/RN OPENING NOTE Patient is resting in bed, A/O x0, nonverbal, opens eyes to name and reacts to touch. ISHMAEL Picc line is clean and intact. IV line in left wrist is clean and intact. Patient is on cool air aerosol treatment, O2 5L t-piece portex size 7. Bed is in lowest position, side rails x3 in upright position, safety and aspiration precautions enforced. Will turn [id number]. Will continue with plan of care.
[2019-12-07 08:00] VITALS: BP 101/71
[2019-12-07] MEDS: CHLORHEXIDINE GLUCONATE 15 ML UDC MM SCH ×2 (09:28→17:34)
[2019-12-07] MEDS: PANTOPRAZOLE 40 MG VIAL IV SCH (09:28)
[2019-12-07] MEDS: ENOXAPARIN SODIUM 40 MG/0.4 ML DISP.SYRIN SQ SCH (09:28)
[2019-12-07] MEDS: LEVETIRACETAM (500MG) 500 MG in IV NS 0.9% 100 ML IV SCH ×2 (09:37→21:14)
--- NOTE | 2019-12-07 10:00 | NUR ---
MS/RN NOTE Per MD, patient is to be started on TPN and pharmacy stated that per protocol, patient doesn't meet requirements since patient has to be on TPN for at least 3 days. I told the pharmacy there is no order yet for g-tube placement and MD stated that there is no scheduled date for g-tube placement. Pharmacy told me they would call the MD and figure it out.
[2019-12-07] MEDS ORDERED: Magnesium 1GM/D5W 100ML PREMIX 100 ML IV SCH (12:45)
[2019-12-07] MEDS: DAKINS QUARTER STRENGTH (0.125%) 480 ML BOTTLE TOP SCH (13:00)
--- NOTE | 2019-12-07 15:22 | NUR ---
MS/RN NOTE Dakin's solution to be used tomorrow after serial debridement of the right hip. Telephone consent received from patient's family member.
[2019-12-07 16:00] VITALS: BP 117/70
--- NOTE | 2019-12-07 19:00 | NUR ---
MS/RN NOTE Spoke with pharmacy and they stated there was a misunderstanding with putting in the orders for TPN. TPN is to be started this PM, faxed pharmacy patient's records from SNF. aware.
[2019-12-07] MEDS ORDERED: TPN BAG #1 IV PRN ×5 (19:30)
[2019-12-07] MEDS ORDERED: CLONIDINE HCL 0.1MG/24H PTWK 1 EA PATCH TD SCH ×2 (19:30→21:00)
[2019-12-07] MEDS ORDERED: TPN/PPN PER PHARMACY XX PRN (19:30)
[2019-12-07] MEDS ORDERED: FEE TPN 1 MIN EA MC ONE (19:34)
--- NOTE | 2019-12-07 19:38 | NUR ---
MS RN NOTES PATIENT IN BED, WITH EYE OPEN, RESPONDS TO TOUCH. NONVERBAL. BREATHING EVEN AND UNLABORED ON T-PIECE PORTEX SIZE 7 ON 6L. IV ON ISHMAEL PICC ON IS CLEAN DRY AND INTACT AND L WRIST 24G. ITS CLEAN DRY AND INTACT. SHOWS NO SIGNS OF INFILTRATION, NO REDNESS. FC IS INTACT FLOWING YELLOW CLEAR URINE. SAFETY PRECAUTIONS IN PLACE. BED IN LOWEST POSITION, LOCKED, AND CALL LIGHT KEPT WITHIN REACH. WILL CONTINUE TO MONITOR.
--- NOTE | 2019-12-07 19:46 | NUR ---
MS/RN CLOSING NOTE Patient is resting in bed, A/O x0, nonverbal, opens eyes to name and reacts to touch. ISHMAEL Picc line is clean and intact. IV line in left wrist is clean and intact. Patient is on cool air aerosol treatment, O2 5L t-piece portex size 7. Patient is to be started on TPN this PM, MD aware. All patient needs met, all due meds given. Patient turned [id number], kept clean and comfortable throughout shift. Bed is in lowest position, side rails x3 in upright position, safety and aspiration precautions enforced. . Will endorse to awake overnight monitor.
[2019-12-07 20:00] VITALS: BP 101/52
--- NOTE | 2019-12-07 21:00 | NUR ---
MS RN NOTES PATIENT STARTED ON TPN AT 2100 AT 40ML/ HR. WILL CONTINUE TO MONITOR.
[2019-12-08] MEDS: BLOOD SUGAR DIAGNOSTIC 1 EACH STRIP IN SCH ×5 (00:05→23:44)
[2019-12-08] MEDS: ALBUTEROL FS 2.5 MG/3 ML VIAL.NEB NEB SCH ×4 (01:44→19:36)
--- NOTE | 2019-12-08 05:37 | NUR ---
PATIENT RECEIVED ON 28% AEROSOL T-TUBE, TOLERATING WITH NO DISTRESS/SOB NOTED. SUCTIONED FOR MINIMAL, THICK, YELLOW-CREAM SECRETIONS. GIVEN IN-LINE TREATMENTS WITH NO ADVERSE REACTIONS. AMBU BAG AT BEDSIDE. Addendum: 12/08/19 at 0538 by DRAKE ODOM RT Amended: Links added.
[2019-12-08 06:30] LABS: BASOPHILS # (AUTO) 0.1 /CMM (0.0-0.2); BASOPHILS % (AUTO) 1.1 % (0.0-2.0); EOSINOPHILS % (AUTO) 5.8 % (0.0-6.0); HEMATOCRIT 32 % (39-51); HEMOGLOBIN 10.3 g/dL (13.5-17.5); LYMPHOCYTES # (AUTO) 1.1 /CMM (0.8-4.8); LYMPHOCYTES % (AUTO) 15.2 % (20.0-44.0); MEAN CORPUSCULAR HGB CONC 32 g/dl (31.0-36.0); MEAN CORPUSCULAR VOLUME 92 fL (80-96); MONOCYTES # (AUTO) 0.6 /CMM (0.1-1.30); NEUTROPHILS # (AUTO) 4.8 /CMM (1.8-8.9); NEUTROPHILS % (AUTO) 68.9 % (43.0-81.0); PLATELET COUNT (AUTO) 160 /CMM (150-450); RED BLOOD CELL COUNT(AUTO) 3.44 MIL/uL (4.5-6.0)
[2019-12-08 06:33] LABS: CALCIUM, SERUM 9.3 mg/dL (8.5-10.1); CREATININE 1.2 mg/dL (0.6-1.3); MAGNESIUM 1.8 mg/dL (1.8-2.4); PHOSPHORUS 3.7 mg/dL (2.5-4.9); POTASSIUM 3.4 mmol/L (3.5-5.1)
--- NOTE | 2019-12-08 06:45 | NUR ---
MS RN NOTES PATIENT IN BED, ASLEEP, RESPONDS TO TOUCH. NONVERBAL. BREATHING EVEN AND UNLABORED ON T-PIECE PORTEX SIZE 7 ON 6L. IV ON ISHMAEL PICC ON IS CLEAN DRY AND INTACT RUNNING TPN AT 40ML/HR. L WRIST 24G IS FLUSHING, CLEAN DRY AND INTACT. SHOWS NO SIGNS OF INFILTRATION, NO REDNESS. FC IS INTACT FLOWING LEFTY CLEAR URINE. ALL DUE MEDICATIONS GIVEN. SAFETY PRECAUTIONS IN PLACE. BED IN LOWEST POSITION, LOCKED, AND CALL LIGHT KEPT WITHIN REACH. WILL ENDORSE TO ONCOMING NURSE.
--- NOTE | 2019-12-08 07:00 | NUR ---
MS/RN Opening note Received patient in bed, non verbal, able to responds physical stimuli. Patient on tracheostomy no s/s of respiratory distress observed, skin is warm to touch, kept clean/dry, intact IV/picc line. No s/s of TPN overload, stable blood sugar level, keep lower position of the bed with elevated HOB. Kemal light within reach, will continue to monitor.
[2019-12-08 08:00] VITALS: BP 135/80
[2019-12-08] MEDS: PANTOPRAZOLE 40 MG VIAL IV SCH (08:47)
[2019-12-08] MEDS: LEVETIRACETAM (500MG) 500 MG in IV NS 0.9% 100 ML IV SCH ×2 (08:47→21:30)
[2019-12-08] MEDS: CHLORHEXIDINE GLUCONATE 15 ML UDC MM SCH ×2 (08:47→17:52)
[2019-12-08] MEDS: DAKINS QUARTER STRENGTH (0.125%) 480 ML BOTTLE TOP SCH (08:48)
[2019-12-08] MEDS: NEOMY SULF/BACITRAC ZN/POLY 15 GM TUBE TP SCH (08:48)
[2019-12-08] MEDS: ENOXAPARIN SODIUM 40 MG/0.4 ML DISP.SYRIN SQ SCH (08:54)
--- NOTE | 2019-12-08 08:54 | NUR ---
Patient going have right hip wound debridement, will hold Lovenox at this time.
[2019-12-08] MEDS: POTASSIUM CL. PREMIX PERIPHER. 50 ML IV SCH ×2 (10:43→11:43)
--- NOTE | 2019-12-08 11:50 | NUR ---
Obtained consent for EGD with PEG over the phone with 2 RNs by brother/Dain Hilliard .
[2019-12-08] MEDS ORDERED: TPN BAG #2 IV PRN ×6 (12:30)
[2019-12-08 16:00] VITALS: BP 158/71
--- NOTE | 2019-12-08 18:50 | NUR ---
MS/RN Closing note Patient resting in bed comfortably, no appears pain or discomfort. Skin is warm to touch, clean/dry, intact picc line/IV site. Respiratory even and unlabored, provided oral care. patient is on TPN, no s/s of fluid over load observed, stable blood sugar level. Kept lower position of the bed with elevated HOB. Call light within reach, will endorse to geothermal technician.
--- NOTE | 2019-12-08 19:30 | NUR ---
MS RN NOTE: PATIENT RESTING IN BED, NO ACUTE DISTRESS NOTED. BREATHING EVEN AND UNLABORED, NO SOB NOTED. T-PIECE IN PLACE. [place] CATHETER IN PLACE, EMPTY AT THIS TIME. PICC LINE TO ISHMAEL IN PLACE, INFUSING TPN ORDERED. BED LOCKED AND IN LOWEST POSITION, CALL LIGHT IN REACH, WILL CONTINUE TO MONITOR.
[2019-12-08 20:00] VITALS: BP 154/89
--- NOTE | 2019-12-09 00:30 | NUR ---
MS RN NOTE: PATIENT BLOOD SUGAR LEVEL 110MG/DL, NO INSULIN COVERAGE. NO S/S OF HYPER/HYPOGLYCEMIA NOTED. WILL CONTINUE TO MONITOR.
[2019-12-09] MEDS: ALBUTEROL FS 2.5 MG/3 ML VIAL.NEB NEB SCH ×4 (01:39→20:01)
[2019-12-09] MEDS: BLOOD SUGAR DIAGNOSTIC 1 EACH STRIP IN SCH ×4 (06:20→23:20)
[2019-12-09 06:35] LABS: BASOPHILS % (AUTO) 0.5 % (0.0-2.0); EOSINOPHILS % (AUTO) 4.5 % (0.0-6.0); HEMATOCRIT 34 % (39-51); HEMOGLOBIN 10.7 g/dL (13.5-17.5); LYMPHOCYTES # (AUTO) 1.6 /CMM (0.8-4.8); LYMPHOCYTES % (AUTO) 17.4 % (20.0-44.0); MEAN CORPUSCULAR HGB CONC 32 g/dl (31.0-36.0); MEAN CORPUSCULAR VOLUME 93 fL (80-96); MONOCYTES % (AUTO) 11.1 % (2.0-12.0); NEUTROPHILS % (AUTO) 66.5 % (43.0-81.0); PLATELET COUNT (AUTO) 162 /CMM (150-450); RED BLOOD CELL COUNT(AUTO) 3.64 MIL/uL (4.5-6.0); WHITE BLOOD COUNT (AUTO) 9.1 K/uL (4.3-11.0)
[2019-12-09 06:40] LABS: CALCIUM, SERUM 9.7 mg/dL (8.5-10.1); CREATININE 1.1 mg/dL (0.6-1.3); MAGNESIUM 1.7 mg/dL (1.8-2.4); PHOSPHORUS 3.6 mg/dL (2.5-4.9); POTASSIUM 3.4 mmol/L (3.5-5.1)
--- NOTE | 2019-12-09 06:52 | NUR ---
MS RN NOTE: PATIENT RESTING IN BED, NO ACUTE DISTRESS NOTED. BREATHING EVEN AND UNLABORED, NO SOB NOTED. T-PIECE IN PLACE. [place] CATHETER IN PLACE, DRAINED 400ML CLEAR YELLOW URINE. PICC LINE TO ISHMAEL IN PLACE, INFUSING TPN, NEW BAG CHANGED PER MD ORDER. BLOOD SUGAR LEVEL 115MG/DL, NO INSULIN COVERAGE NEEDED. BED LOCKED AND IN LOWEST POSITION, CALL LIGHT IN REACH, WILL ENDORSE TO DAY NURSE TO CONTINUE WITH PLAN OF CARE.
--- NOTE | 2019-12-09 07:20 | NUR ---
RN OPENING NOTE PT WAS RECEIVED IN BED AT LOWEST AND LOCKED POSITION WITH SIDE RAILS UP X2, OBTUNDED OPENS EYES NONVERBAL, ON VENT WITH PORTEX #7 WITH VENT SETTINGS NOTED, [place] IN PLACE AND DRAINING, NPO, ISHMAEL PICC IS PATENT AND INTACT WITH TPN RUNNING, PLAN FOR PEG PLACEMENT TODAY WITH DR. SANCHEZ, SAFETY PRECAUTIONS IN PLACE, CALL LIGHT IN REACH, WILL MONITOR ACCORDINGLY
[2019-12-09 08:19] VITALS: BP 101/68
[2019-12-09 08:22] LABS: APPEARANCE,URINE CLOUDY (CLEAR); BILIRUBIN,URINE SMALL (NEGATIVE); BLOOD, URINE MODERATE Ery/uL (NEGATIVE); COLOR,URINE YELLOW (YELLOW); KETONES,URINE NEGATIVE (NEGATIVE); LEUKOCYTE ESTERASE ,URINE LARGE (NEGATIVE); NITRITE, URINE NEGATIVE (NEGATIVE); PROTEIN,URINE 30 mg/dl (NEGATIVE); UGLUCOSE NEGATIVE (NEGATIVE)
[2019-12-09 08:37] LABS: BACTERIA,URINE Many /HPF (None Seen); SQUAMOUS EPITHELIAL CELL,UR Few /HPF (None Seen); WBC,URINE TOO NUMEROUS TO COUN /HPF (0-3)
[2019-12-09] MEDS: CHLORHEXIDINE GLUCONATE 15 ML UDC MM SCH ×2 (08:45→16:32)
[2019-12-09] MEDS: NEOMY SULF/BACITRAC ZN/POLY 15 GM TUBE TP SCH (08:46)
[2019-12-09] MEDS: DAKINS QUARTER STRENGTH (0.125%) 480 ML BOTTLE TOP SCH (08:46)
[2019-12-09] MEDS: PANTOPRAZOLE 40 MG VIAL IV SCH (08:46)
[2019-12-09] MEDS: ENOXAPARIN SODIUM 40 MG/0.4 ML DISP.SYRIN SQ SCH (08:46)
--- NOTE | 2019-12-09 08:47 | NUR ---
RN NOTE LOVENOX NOT GIVEN DUE TO PLAN FOR PEG PLACEMENT TODAY
[2019-12-09] MEDS: LEVETIRACETAM (500MG) 500 MG in IV NS 0.9% 100 ML IV SCH ×2 (08:52→22:03)
[2019-12-09] MEDS ORDERED: FAT EMULSION 20% 500 ML in PREMIX 1 EA IV SCH (09:00)
[2019-12-09] MEDS ORDERED: Magnesium 1GM/D5W 100ML PREMIX 100 ML IV SCH (09:23)
[2019-12-09] MEDS ORDERED: POTASSIUM CL. PREMIX PERIPHER. 50 ML IV SCH (10:23)
[2019-12-09] MEDS ORDERED: TPN BAG #3 IV PRN ×6 (12:00)
[2019-12-09] MEDS ORDERED: MIDAZOLAM HCL 2 MG/2ML VIAL ONE ×2 (12:12→14:36)
[2019-12-09] MEDS ORDERED: WEAN OFF TPN/PPN IV PRN (14:30)
--- NOTE | 2019-12-09 14:44 | NUR ---
RN NOTE PT TAKEN TO OR AT THIS TIME
--- NOTE | 2019-12-09 15:57 | NUR ---
RN NOTE PT BROUGHT BACK FROM OR AT THIS TIME
--- NOTE | 2019-12-09 16:13 | NUR ---
RN NOTE POSTOP ORDERS ACKNOWLEDGED, NPO EXCEPT MEDS AND TO RESUME TF TOMORROW AM
[2019-12-09 16:21] VITALS: BP 102/69
--- NOTE | 2019-12-09 16:55 | NUR ---
RN NOTE WOUND CARE DONE AT THIS TIME
--- NOTE | 2019-12-09 18:19 | NUR ---
RN CLOSING NOTE PT IN BED AT LOWEST AND LOCKED POSITION WITH SIDE RAILS UP X2, OBTUNDED OPENS EYES NONVERBAL, ON T-PIECE WITH PORTEX #7, [place] IN PLACE AND DRAINING WITH 450 OUT, NPO EXCEPT MED, ISHMAEL PICC IS PATENT AND INTACT WITH TPN RUNNING, S/P PEG TUBE PLACEMENT TODAY WITH DR. SANCHEZ, OKAY TO USE PEG TUBE TOMORROW AM AND START FEEDING, SAFETY PRECAUTIONS IN PLACE, CALL LIGHT IN REACH, ALL NEEDS ATTENDS TO, WILL ENDORSE TO NIGHT RN FOR MALIK
--- NOTE | 2019-12-09 19:30 | NUR ---
PRODUCTION CONTROL SUPERVISOR: RECEIVED REPORT FROM ETELVINA CHIN AT 1905. PT OBTUNDED, OPEN EYES, ON TRACHE/T-PIECE 28% FIO2, PORTEX #7, PT S/P EGD WITH PEG BY DR SANCHEZ, S/P RIGHT HIP WOUND DEBRIDEMENT BY CAROLYN ON 12/08/2019. PT HAS RIGHT UPPER ARM PICC LINE DOUBLE LUMEN, PATENT AND FLUSHING WELL, ONE PORT INFUSING WITH TPN BAG #2 AT 60ML/HR AND A LIPIDS AT 21ML/HR. PER REPORT, PT WS CONNECTED BACK TO TPN AND LIPIDS POST PROCEDURE THE TUBE FEEDS WONT BE START TILL TOMORROW AM. PT HAS [place] CATHETER IN PLACED, BAG DRAINING TO GRAVITY. SUCTION SET UP SECURED, AMBU BAG AVAILABLE AT BED SIDE. SAFETY PRECAUTIONS FOR FALL INITIATED, CALL LIGHT IN REACH, WILL CONTINUE MONITORING PT.
[2019-12-09 20:00] VITALS: BP 102/68
--- NOTE | 2019-12-09 20:18 | NUR ---
RT NOTES PT RECEIVED TRACHED ON COOL AEROSOL FIO2 28%. NO SIGNS OF DISTRESS NOTED. AIRWAY PATENT AND SECURED. PT SUCTIONED. TX GIVEN. NO ADVERSE REACTIONS NOTED. AMBUBAG AND SPARE TRACH AT BEDSIDE. WILL CONT TO MONITOR. Addendum: 12/09/19 at 2342 by JOSE DEL VALLE RT Amended: Links added.
--- NOTE | 2019-12-09 20:21 | NUR ---
RN NOTES: PT S/P EGD WITH PEG PLACEMENT TODAY AT 12NOON BY DR SANCHEZ, WITH ORDERS TO BE NPO EXCEPT MEDS BUT TO USE GTUBE TOMORROW, ALSO GTUBE FEEDS TO START IN AM, WITH DIETARY CONSULT. NOTED ISSUES WITH TPN ORDER BAG #2 THIS WAS DC'D IN EMAR AND EMR AT 1143AM. SPOKED WITH FISHERIES SPECIALISTJUDIE ELLIOTT, FISHERIES SPECIALIST RELAY ISSUES WITH ELSY CHAPPELL, THEN ELSY CHAPPELL CALLED YANN/THE EXPERIMENTAL BOX TESTER PHARMACIST. 1999- SPOKED WITH EXPERIMENTAL BOX TESTER PHARMACIST YANN OVER THE PHONE, MADE AWARE THAT PT'S GTUBE FEEDING WILL BE RESTARTED TOMORROW PER GI ORDER. PER YANN, TO CALL/ASK GI/DR SANCHEZ IF OKAY TO START PT BACK ON TPN TONIGHT AND ASK THE RATE, OR IF WANTS TO GIVE IVF. 2014- CONTACTED DR SANCHEZ'S EXCHANGE AT [phone], WAS DIRECTED THRU ANSWERING SERVICE, STATING DR HERMAN IS THE EXPERIMENTAL BOX TESTER MD, LEFT A MESSAGE, AWAITING FOR CALL BACK. 2019- FISHERIES SPECIALIST MADE AWARE OF THE CALL TO GI.
--- NOTE | 2019-12-09 20:40 | NUR ---
RN NOTES: PLACED 2ND CALL TO GI AT [facility] NUMBER [phone], DIRECTED THRU ANSWERING SVC, LEFT A MESSAGE, AWAITING FOR CALL BACK. CLERICAL CAR CHECKER MADE AWARE OF 2ND CALL.
--- NOTE | 2019-12-09 20:54 | NUR ---
RN NOTES: NO CALL BACK FROM GI MD, CONTACTED HOSPITALIST SOLUTION LEAD, SPOKED WITH ERIN GONSALEZ, RELAYED SITUATION, INFORMED MD BAG STARTED/TPN ADMIN AT 0651AM, PER MD RECEIVED TELEPHONE ORDER TO CONTINUE WITH TPN BAG #2 WITH SAME RATE, 60ML/HR, CONTINUE WITH LIPIDS AT 21ML/HR, UNTIL STARTED ON TUBE FEEDS IN AM. PER MD, ITS OKAY TO HAVE THE ONE HOUR OFF OF TPN TOMORROW TUBE FEEDS WILL THEN BE STARTED.
--- NOTE | 2019-12-09 21:41 | NUR ---
RN NOTES: RECEIVED CALL FROM DR SANCHEZ, RELAYED SITUATION ABOUT TPN AND LIPIDS, AND PER PHARMACY TO ASK GI IF OKAY TO RESTART BOTH SINCE FEEDING WONT START TILL TOMORROW. PER MD "PT WILL START GTUBE FEEDING TOMORROW MORNING, LEAVE HIM ALONE, DISCONTINUE TPN AND LIPIDS" MD VERBALIZED. ASKED MD IF WANTS TO ORDER IVF, "LEAVE HIM ALONE" MD VERBALIZED. PT RECEIVING JEVITY 1.5 AT 65ML/HR X 20HRS IN FACILITY, WILL START IN AM. CHRISTIAN EDUCATION DIRECTOR AWARE OF THE CONVERSATION.
--- NOTE | 2019-12-09 22:00 | NUR ---
RN NOTES: NEWLY INSERTED GTUBE IN PLACED, ABDOMINAL BINDER IN USE. ABDOMEN SOFT TO TOUCH WITH ACTIVE BOWEL SOUND HEARD UPON AUSCULTATION. GTUBE ABLE TO FLUSH WELL WITH 30CC OF WATER. NO S/S OF ACTIVE BLEEDING NOTED.
--- NOTE | 2019-12-09 22:10 | NUR ---
RN NOTES: STOPPED CURRENT TPN AND LIPIDS PER GI MD ORDER, OPTICAL ENGINEERING MANAGER AWARE. ISHMAEL PICC LINE FLUSHED WITH 20CC NORMAL SALINE. PT BACK TO NPO, ON Q6HRS ACCU CHECK WITH SLIDING SCALE, WILL MONITOR BLOOD GLUCOSE OFF TPN AND LIPIDS.
[2019-12-09] MEDS: CHLORHEXIDINE GLUCONATE 4% 118 ML BOTTLE TP SCH (22:11)
[2019-12-09] MEDS: INSULIN REGULAR, HUMAN 100 UNIT/ML 3 ML VIAL SQ PRN (23:20)
--- NOTE | 2019-12-09 23:20 | NUR ---
ACCU CHECK 104: BLOOD GLUCOSE RESULT 104, NO INSULIN COVERAGE GIVREN PER SLIDING SCALE
[2019-12-10] MEDS: ALBUTEROL FS 2.5 MG/3 ML VIAL.NEB NEB SCH ×4 (01:25→19:06)
--- NOTE | 2019-12-10 04:00 | NUR ---
AM CARE/WOUND CARE: ASSISTED DRIVER'S LICENSE EXAMINER IN PROVIDING BED BATH TO THE PT, WOUND CARE DONE ORDERED. NEW SUCTION SET UP SECURED.
[2019-12-10] MEDS: BLOOD SUGAR DIAGNOSTIC 1 EACH STRIP IN SCH ×3 (05:06→17:19)
[2019-12-10] MEDS: INSULIN REGULAR, HUMAN 100 UNIT/ML 3 ML VIAL SQ PRN (05:06)
--- NOTE | 2019-12-10 05:06 | NUR ---
ACCU CHECK 102: BLOOD GLUCOSE CHECK PERFORMED, RESULT OBTAINED 102, NO INSULIN COVERAGE GIVEN PER SLIDING SCALE.
--- NOTE | 2019-12-10 06:04 | NUR ---
RN NOTES: RECEIVED CALL FROM PHARMACIST YANN, RELAYED ABOUT WHAT HAPPENED LAST NIGHT, RELAYED ALL MD ORDER INCLUDING GI ORDER.
[2019-12-10 06:18] LABS: BASOPHILS % (AUTO) 0.4 % (0.0-2.0); EOSINOPHILS % (AUTO) 3.1 % (0.0-6.0); HEMATOCRIT 31 % (39-51); HEMOGLOBIN 10.2 g/dL (13.5-17.5); LYMPHOCYTES % (AUTO) 10.3 % (20.0-44.0); MEAN CORPUSCULAR HGB CONC 33 g/dl (31.0-36.0); MEAN CORPUSCULAR VOLUME 92 fL (80-96); MONOCYTES # (AUTO) 0.6 /CMM (0.1-1.30); MONOCYTES % (AUTO) 6.4 % (2.0-12.0); NEUTROPHILS # (AUTO) 7.7 /CMM (1.8-8.9); NEUTROPHILS % (AUTO) 79.8 % (43.0-81.0); PLATELET COUNT (AUTO) 153 /CMM (150-450); WHITE BLOOD COUNT (AUTO) 9.7 K/uL (4.3-11.0)
[2019-12-10] MEDS: JEVITY 1.2 CAL 1,000 ML BOTTLE GT PRN (06:28)
--- NOTE | 2019-12-10 06:30 | NUR ---
rn notes: started gtube feeding per md order, pt on jevity 1.2 at 65ml/hr x 20hrs in facility, to resume per order, started initially on 20ml/hr, will monitor pt's tolerance.
--- NOTE | 2019-12-10 06:49 | NUR ---
END OF SHIFT REPORT: PT TOLERATED T-PIECE WELL, SUCTION VIA TRACHE MULTIPLE TIMES OBTAINED THICK WHITISH SECRETIONS. NEW SUCTION SET UP SECURED. ISHMAEL PICC LINE REMAINS PATENT AND EASILY FLUSHES WELL WITH 10CC OF NS, WITH BRISK BLOOD RETURN NOTED, DRESSING C/D/I, PICC LINE ON HL. PT'S GTUBE REMAINS IN PLACED, ABLE TO FLUSH WELL WITH 30CC OF WATER, PT STARTED ON GTUBE FEEDING AT 0630AM, JEVITY 1.2 AT 20ML/HR, GOAL IS 65ML/HR. [place] CATHETER REMAINS IN PLACED, BAG DRAINING VIA GRAVITY. WOUND CARE DONE ORDERED, AM CARE PROVIDED. VS REMAINS STABLE, NEEDS ATTENDED. SAFETY PRECAUTIONS FOR FALL REMAINS ENGAGED, CALL LIGHT IN REACH, WILL ENDORSE TO DAY RN FOR CONTINUITY OF CARE.
--- NOTE | 2019-12-10 07:36 | NUR ---
MS RN NOTES RECEIVED REPORT ON PATIENT FROM PM NURSE. PATIENT IS LAYING IN BED. CALL LIGHT IS WITHIN REACH. BED IS IN LOWEST LOCKED POSITION WITH SIDE RAILS UP. WILL CONTINUE TO MONITOR PATIENT.
[2019-12-10 08:00] VITALS: BP 109/77
[2019-12-10 08:08] LABS: CALCIUM, SERUM 9.2 mg/dL (8.5-10.1); MAGNESIUM 1.7 mg/dL (1.8-2.4); PHOSPHORUS 4.3 mg/dL (2.5-4.9); POTASSIUM 3.6 mmol/L (3.5-5.1)
[2019-12-10] MEDS: PANTOPRAZOLE 40 MG VIAL IV SCH (08:09)
[2019-12-10] MEDS: CHLORHEXIDINE GLUCONATE 15 ML UDC MM SCH ×2 (08:09→17:23)
[2019-12-10] MEDS: ENOXAPARIN SODIUM 40 MG/0.4 ML DISP.SYRIN SQ SCH (08:20)
[2019-12-10] MEDS: DAKINS QUARTER STRENGTH (0.125%) 480 ML BOTTLE TOP SCH (09:21)
[2019-12-10] MEDS: NEOMY SULF/BACITRAC ZN/POLY 15 GM TUBE TP SCH (09:22)
[2019-12-10] MEDS: Magnesium 1GM/D5W 100ML PREMIX 100 ML IV SCH ×2 (09:30→13:29)
[2019-12-10] MEDS: LEVETIRACETAM (500MG) 500 MG in IV NS 0.9% 100 ML IV SCH (09:41)
[2019-12-10 16:00] VITALS: BP 114/81
--- NOTE | 2019-12-10 18:47 | NUR ---
MS RN CLOSING NOTES PATIENT IS CURRENTLY LAYING IN BED. BED IS IN LOWEST, LOCKED POSITION WITH SIDE RAILS UP, SEMI FOWLERS. CALL LIGHT IS WITHIN REACH. FEEDING IS RUNNING AT 40 Ml/HR. ALL MEDS HAVE BEEN GIVEN. PATIENT DOES NOT APPEAR TO BE IN PAIN. PICC LINE IS INTACT AND PATENT. WILL GIVE REPORT TO PM SHIFT.
--- NOTE | 2019-12-10 19:30 | NUR ---
MS RN OPENING NOTES PATIENT RECEIVED RESTING IN BED A/O X 1 OBTUNDED. PATIENT ON A TRACH/ T PIECE ON 5 L TOLERATING WELL WITH BREATHING EVEN AND UNLABORED, NO SOB NOTED. NO SIGNS OF ACUTE DISTRESS. NO COMPLAINTS OF PAIN OR DISCOMFORT, NO FACIAL GRIMACING NOTED. PATIENT HAS A MU[place]AMMAD WITH CLEAR YELLOW URINE. G TUBE NOTED IN PLACE RUNNING 40 CC/ HR. MIDLINE LOCATED ON ISHMAEL PICC PATENT AND INTACT. SAFETY PRECAUTIONS IN PLACE WITH BED IN LOWEST POSITION, BREAKS ON, CALL LIGHT WITHIN REACH, AND SIDE RAILS UP. WILL CONTINUE TO MONITOR THROUGHOUT THE NIGHT.
[2019-12-10 19:54] VITALS: BP 132/83
[2019-12-10 20:00] VITALS: BP 132/83
[2019-12-10] MEDS: LEVETIRACETAM SOL (5 ML) 100 MG/ML UDC GT SCH (20:53)
[2019-12-10] MEDS: CHLORHEXIDINE GLUCONATE 4% 118 ML BOTTLE TP SCH (20:59)
[2019-12-11] MEDS: BLOOD SUGAR DIAGNOSTIC 1 EACH STRIP IN SCH ×3 (00:07→11:20)
--- NOTE | 2019-12-11 00:07 | NUR ---
MS RN NOTES Q6 ACCU CHECK FSBS 120- NO COVERAGE NEEDED. WILL CONTINUE TO MONITOR. FEEDING RATE INCREASED TO 60/ HR OF JEVITY 2.1, WILL CONTINUE TO MONITOR TO SEE HOW WELL PATIENT TOLERATES IT. RESIDUAL OF LESS THAN 20 ML NOTED WHEN RATE WAS AT 50/ HR.
[2019-12-11] MEDS: ALBUTEROL FS 2.5 MG/3 ML VIAL.NEB NEB SCH ×3 (00:29→12:36)
--- NOTE | 2019-12-11 05:08 | NUR ---
MS RN NOTES PATIENT G TUBE FEEDING DECREASED BACK TO 50 CC/ HR, DUE TO UNABLE TO TOLERATE. VOMITED FEEDING. WILL CONTINUE TO MONITOR.
--- NOTE | 2019-12-11 05:59 | NUR ---
MS RN NOTES FSBS 125- NO COVERAGE NEEDED. WILL CONTINUE TO MONITOR.
--- NOTE | 2019-12-11 06:25 | NUR ---
MS RN CLOSING NOTES PATIENT RESTING IN BED A/O X 1 OBTUNDED. PATIENT ON A TRACH/ T PIECE ON 5 L TOLERATING WELL WITH BREATHING EVEN AND UNLABORED, NO SOB NOTED. NO SIGNS OF ACUTE DISTRESS. NO COMPLAINTS OF PAIN OR DISCOMFORT, NO FACIAL GRIMACING NOTED. PATIENT HAS A MUHAMMAD WITH CLEAR DARK YELLOW URINE. G TUBE NOTED IN PLACE RUNNING 50 CC/ HR. MIDLINE LOCATED ON ISHMAEL PICC PATENT AND INTACT. SAFETY PRECAUTIONS IN PLACE WITH BED IN LOWEST POSITION, BREAKS ON, CALL LIGHT WITHIN REACH, AND SIDE RAILS UP. WOUND CARE DONE. SUCTIONING EQUIPMENT REPLACED. PATIENT WAS KEPT CLEAN AND DRY THROUGHOUT THE NIGHT, ALL NEEDS ATTENDED TO. WILL ENDORSE TO ONCOMING SHIFT ABOUT MALIK.
[2019-12-11 06:45] LABS: BASOPHILS # (AUTO) 0.1 /CMM (0.0-0.2); BASOPHILS % (AUTO) 1.1 % (0.0-2.0); EOSINOPHILS % (AUTO) 1.8 % (0.0-6.0); HEMATOCRIT 32 % (39-51); HEMOGLOBIN 10.3 g/dL (13.5-17.5); LYMPHOCYTES # (AUTO) 1.3 /CMM (0.8-4.8); LYMPHOCYTES % (AUTO) 13.3 % (20.0-44.0); MEAN CORPUSCULAR HGB CONC 32 g/dl (31.0-36.0); MEAN CORPUSCULAR VOLUME 92 fL (80-96); MONOCYTES % (AUTO) 10.6 % (2.0-12.0); NEUTROPHILS % (AUTO) 73.2 % (43.0-81.0); PLATELET COUNT (AUTO) 167 /CMM (150-450); RED BLOOD CELL COUNT(AUTO) 3.47 MIL/uL (4.5-6.0); WHITE BLOOD COUNT (AUTO) 9.5 K/uL (4.3-11.0)
[2019-12-11 06:48] LABS: CREATININE 1.2 mg/dL (0.6-1.3); MAGNESIUM 2.1 mg/dL (1.8-2.4); PHOSPHORUS 4.1 mg/dL (2.5-4.9); POTASSIUM 3.5 mmol/L (3.5-5.1)
--- NOTE | 2019-12-11 07:31 | NUR ---
MS/RN OPENING NOTES RECEIVED PATIENT RESTING IN BED A/O X 1 OBTUNDED. PATIENT ON A TRACH/ T PIECE ON 5 L TOLERATING WELL WITH BREATHING EVEN AND UNLABORED, NO SOB NOTED. NO SIGNS OF ACUTE DISTRESS. NO COMPLAINTS OF PAIN OR DISCOMFORT, NO FACIAL GRIMACING NOTED. PATIENT HAS A MU[place]AMMAD CATHETER IN PLACED. G TUBE NOTED IN PLACE RUNNING 50 CC/ HR. MIDLINE LOCATED ON ISHMAEL PICC PATENT AND INTACT. SAFETY PRECAUTIONS IN PLACE WITH BED IN LOWEST POSITION, BREAKS ON, CALL LIGHT WITHIN REACH, AND SIDE RAILS UP. SUCTIONING EQUIPMENT REPLACED. WILL CONTINUE TO MONITOR.
[2019-12-11] MEDS: CHLORHEXIDINE GLUCONATE 15 ML UDC MM SCH (08:45)
[2019-12-11] MEDS: LEVETIRACETAM SOL (5 ML) 100 MG/ML UDC GT SCH (08:45)
[2019-12-11] MEDS: PANTOPRAZOLE 40 MG VIAL IV SCH (08:45)
[2019-12-11] MEDS ORDERED: ENOX40DI SQ (08:46)
[2019-12-11] MEDS ORDERED: LACT-209 GT (08:46)
[2019-12-11] MEDS ORDERED: CEPH-570 PO (08:46)
[2019-12-11] MEDS: ENOXAPARIN SODIUM 40 MG/0.4 ML DISP.SYRIN SQ SCH (08:49)
[2019-12-11 08:57] VITALS: BP 116/76
[2019-12-11] MEDS: JEVITY 1.2 CAL 1,000 ML BOTTLE GT PRN (09:11)
[2019-12-11] MEDS: NEOMY SULF/BACITRAC ZN/POLY 15 GM TUBE TP SCH (09:41)
[2019-12-11] MEDS: DAKINS QUARTER STRENGTH (0.125%) 480 ML BOTTLE TOP SCH (09:42)
--- NOTE | 2019-12-11 11:21 | NUR ---
MS/RN NOTES BS 124MG/DL 0 COVERAGE.
--- NOTE | 2019-12-11 16:21 | NUR ---
MS/RN NOTES PATIENT IS OBTUNDED. PATIENT ON A TRACH/ T PIECE ON 5 L TOLERATING WELL WITH BREATHING EVEN AND UNLABORED, NO SOB NOTED. NO SIGNS OF ACUTE DISTRESS. NO COMPLAINTS OF PAIN OR DISCOMFORT, NO FACIAL GRIMACING NOTED. PATIENT HAS A MUHAMMAD IN PLACED AND INTACT. PEG TUBE IN PLACED. PATIENT IS IN MEDICALLY STABLE CONDITION. REPORT WAS GIVEN TO CONSTANCE CHIN AT THE [facility] FOR CONTINUITY OF CARE. PATIENT LEFT THE HOSPITAL WITH 2 EMT.
== END 2019-12-11 16:13 | DRG 951 ==
LOC: ER 16:37 → MED 19:56
PROVIDERS: ADMIT Hospitalist; ATTEND Registered Nurse
DX: N39.0 Urinary tract infection, site not specified (principal); G93.40 Encephalopathy, unspecified; J96.10 Chronic respiratory failure, unspecified whether with hypoxia or hypercapnia; L89.314 Pressure ulcer of right buttock, stage 4; E44.0 Moderate protein-calorie malnutrition; D68.59 Other primary thrombophilia; R13.10 Dysphagia, unspecified; E86.0 Dehydration; R53.2 Functional quadriplegia; K21.9 Gastro-esophageal reflux disease without esophagitis; G40.909 Epilepsy, unspecified, not intractable, without status epilepticus; J98.11 Atelectasis; D64.9 Anemia, unspecified; E78.5 Hyperlipidemia, unspecified; E83.42 Hypomagnesemia; I10 Essential (primary) hypertension; L60.0 Ingrowing nail; Z74.01 Bed confinement status; Z86.73 Personal history of transient ischemic attack (TIA), and cerebral infarction without residual deficits; Z79.51 Long term (current) use of inhaled steroids; Z79.899 Other long term (current) drug therapy; M20.42 Other hammer toe(s) (acquired), left foot; M20.41 Other hammer toe(s) (acquired), right foot; M62.50 Muscle wasting and atrophy, not elsewhere classified, unspecified site; K29.70 Gastritis, unspecified, without bleeding; Z86.718 Personal history of other venous thrombosis and embolism; M62.562 Muscle wasting and atrophy, not elsewhere classified, left lower leg; M62.561 Muscle wasting and atrophy, not elsewhere classified, right lower leg; B96.89 Other specified bacterial agents as the cause of diseases classified elsewhere
CPT/HCPCS: 31720; 36415; 43246; 71045-TC; 80048-TC; 80053-TC; 80061-TC; 80076-TC; 81000-TC; 82962-TC; 83690-TC; 83735-TC; 84100-TC; 84478-TC; 85025-TC; 85730-TC; 86850-TC; 87081-TC; 87086-TC; 87186-TC; 94640-TC; A4216; A4623; A6253; C9113; G0378; J0690; J1650; J1815; J1953; J2250; J2704; J3475; J3480; J7030; J7040; J7050

== ENCOUNTER 2020-04-17 20:24 | Emergency (ER) | payer MEDICAID ==
[~2020-04-17] VITALS: Ht 157.5 cm; Wt 59.0 kg
[~2020-04-17 20:24] MED LIST changes: -CEFA1PIG IV; +CEPH-570 PO; +ENOX40DI SQ; +LACT-209 GT; +LEVE100S GT; -LEVE500T9 IV; -MUPI22OI7 MC
[2020-04-17 20:29] VITALS: BP 95/66
--- NOTE | 2020-04-17 20:43 | NUR ---
PAGED DR. HERMAN
--- NOTE | 2020-04-17 21:11 | NUR ---
PATIENT DISCHARGED. STATED HE WOULD NOT ORDER A CT FOR PT. TRANSFERED BACK TO [facility].
== END 2020-04-17 21:12 | disposition home or self-care (01) ==
LOC: ER 20:24
DX: R91.1 Solitary pulmonary nodule (principal); R53.2 Functional quadriplegia; L89.109 Pressure ulcer of unspecified part of back, unspecified stage; I10 Essential (primary) hypertension; E78.5 Hyperlipidemia, unspecified; K21.9 Gastro-esophageal reflux disease without esophagitis; G89.29 Other chronic pain; R13.10 Dysphagia, unspecified; G40.909 Epilepsy, unspecified, not intractable, without status epilepticus; Z86.19 Personal history of other infectious and parasitic diseases; Z93.0 Tracheostomy status; Z93.1 Gastrostomy status; Z79.899 Other long term (current) drug therapy

== ENCOUNTER 2020-07-08 05:40 | Inpatient (IN) | payer MEDICAID ==
[~2020-07-08] VITALS: Ht 165.1 cm; Wt 71.2 kg
--- NOTE | 2020-07-08 05:46 | NUR ---
PT AAO0, PRACHI FROM [facility] C/O DESATTING AT 80'S. PT IS TRACH DEP, BUT HAS NO VENT SETTINGS. I CALLED THE FACILITY REGARDING THE SETTINGS, I WAS TOLD HE SATS 100% ON 5L BUT TODAY HE WAS FOUND SATTING AROUND 80'S. PT PALCED IN BED 8 ON POLICY ANALYST AND PULSE OX. PT FOUND TACHY AT 119, TEMP OF 100.8. MD AT BEDSIDE FOR EVAL. RT WELL. AWAITING MD FOR EVAL AND ORDERS.
--- NOTE | 2020-07-08 05:50 | NUR ---
RT AT BEDSIDE
--- NOTE | 2020-07-08 06:00 | NUR ---
LINE ESTABLISHED RAC 18G, BLOOD COLLECTED AND SENT TO LAB.
--- NOTE | 2020-07-08 06:05 | NUR ---
URINE COLLECTED AND SENT TO LAB.
--- NOTE | 2020-07-08 06:09 | NUR ---
VENT SETTINGS AC 14, TV 500 FIO2 50% PEEP 5
[2020-07-08] MEDS ORDERED: MEROPENEM 1 G in IV NS 0.9% 100 ML IV ONE (06:30)
[2020-07-08] MEDS ORDERED: MEROPENEM 1 G VIAL IV ONE (06:30)
[2020-07-08] MEDS ORDERED: ACETAMINOPHEN 650 MG/SUPP.RECT RC ONE ×2 (06:30)
[2020-07-08 06:33] LABS: ABG BASE EXCESS -15.6 mmol/L; ABG OXYGEN SATURATION 92.1 % (92.0-98.5); ABG PO2 80.1 mmHg (75.0-100.0); AaDO2 216.8 mmHg; COHb 0.3 % (0.5-1.5); MetHb 0.4 % (0.0-1.5); O2Hb 91.5 % (94.0-97.0); SITE, ABG Right Radial
[2020-07-08 06:33] LABS: BASOPHILS # (AUTO) 0.1 /CMM (0.0-0.2); BASOPHILS % (AUTO) 0.5 % (0.0-2.0); EOSINOPHILS % (AUTO) 4.4 % (0.0-6.0); HEMATOCRIT 39 % (39-51); HEMOGLOBIN 11.4 g/dL (13.5-17.5); LYMPHOCYTES # (AUTO) 1.3 /CMM (0.8-4.8); LYMPHOCYTES % (AUTO) 5.9 % (20.0-44.0); MEAN CORPUSCULAR HGB CONC 30 g/dl (31.0-36.0); MEAN CORPUSCULAR VOLUME 99 fL (80-96); MONOCYTES # (AUTO) 1.4 /CMM (0.1-1.30); MONOCYTES % (AUTO) 6.7 % (2.0-12.0); NEUTROPHILS # (AUTO) 17.7 /CMM (1.8-8.9); NEUTROPHILS % (AUTO) 82.5 % (43.0-81.0); PLATELET COUNT (AUTO) 336 /CMM (150-450); WHITE BLOOD COUNT (AUTO) 21.5 K/uL (4.3-11.0)
--- NOTE | 2020-07-08 06:35 | NUR ---
CALLED FOR COVID SWABS
[2020-07-08 06:43] LABS: CALCIUM, SERUM 9.6 mg/dL (8.5-10.1); CARBON DIOXIDE 26 mmol/L (21-32); CHLORIDE 91 mmol/L (98-107); CREATININE 4.2 mg/dL (0.6-1.3); GLUCOSE 266 mg/dL (74-106); POTASSIUM 5.6 mmol/L (3.5-5.1); SODIUM SERUM 130 mmol/L (136-145)
--- NOTE | 2020-07-08 06:49 | NUR ---
COVID SWAB COLLECTED AND SENT TO LAB
[2020-07-08 06:51] LABS: UREA NITROGEN, BLOOD 118 mg/dL (7-18)
[2020-07-08 06:59] LABS: ALANINE AMINOTRANSFERASE 37 U/L (12-78); ALKALINE PHOSPHATASE 158 U/L (46-116); ASPARTATE AMINOTRANSFERASE 57 U/L (15-37); BILIRUBIN,DIRECT 0.1 mg/dL (0.0-0.2); BILIRUBIN,TOTAL 0.2 mg/dL (0.2-1.0); TOTAL PROTEIN, SERUM 8.9 g/dL (6.4-8.2)
[2020-07-08] MEDS ORDERED: IV NS 0.9% 1,000 ML BAG IV ONE ×5 (07:00→11:00)
[2020-07-08 07:20] LABS: ALBUMIN 1.7 g/dL (3.4-5.0)
--- NOTE | 2020-07-08 07:25 | NUR ---
NEGATIVE Addendum: 07/08/20 at 07 by ELISE Amendment chon in EDM - 07/08/20 at 726 by ELISE NEGATIVE COVID RESULT..
--- NOTE | 2020-07-08 07:27 | NUR ---
COVID NEGATIVE RESULT
--- NOTE | 2020-07-08 07:28 | NUR ---
REPORT GIVEN TO KEESHA KEATING RN FOR MALIK
--- NOTE | 2020-07-08 07:30 | NUR ---
RECEIVED REPORT FROM ELSY SHOOK FOR MALIK. PT IS AAOX0 ON VENT VIA TRACH, V/S STABLE, KEPT AND COMFORTABLE. WILL ONGOING IVF NORMAL SALINE ON R AC G18. WILL CONTINUE TO MONITOR.
--- NOTE | 2020-07-08 07:45 | NUR ---
MOVE SHEET SUBMITTED
[2020-07-08 07:46] LABS: APPEARANCE,URINE CLOUDY (CLEAR); BILIRUBIN,URINE NEGATIVE (NEGATIVE); BLOOD, URINE TRACE-INTA Ery/uL (NEGATIVE); COLOR,URINE YELLOW (YELLOW); KETONES,URINE NEGATIVE (NEGATIVE); LEUKOCYTE ESTERASE ,URINE LARGE (NEGATIVE); NITRITE, URINE NEGATIVE (NEGATIVE); PROTEIN,URINE 100 mg/dl (NEGATIVE); UGLUCOSE NEGATIVE (NEGATIVE); UROBILINOGEN,URINE 0.2 EU/dL (0.2)
[2020-07-08 07:48] LABS: PH,URINE >9.0 (5.0-8.0)
[2020-07-08] MEDS ORDERED: CRAN3875 GT (07:49)
[2020-07-08] MEDS ORDERED: ESOM20CA GT (07:49)
[2020-07-08] MEDS ORDERED: NUTR1PAC14 GT (07:49)
[2020-07-08] MEDS ORDERED: EPOE4000 SQ (07:49)
[2020-07-08] MEDS ORDERED: SACC250C GT (07:49)
[2020-07-08] MEDS ORDERED: QUERCETIN GT (07:49)
[2020-07-08] MEDS ORDERED: IPRA4AER IH ×2 (07:49)
[2020-07-08] MEDS ORDERED: LACT100027 GT (07:49)
[2020-07-08] MEDS ORDERED: AMIN30LI27 GT (07:49)
[2020-07-08] MEDS ORDERED: ZINC1CAP2 GT (07:49)
--- NOTE | 2020-07-08 07:59 | NUR ---
EPIC CALLED ITS ERIN GONSALEZ
[2020-07-08 08:09] LABS: BAND % (MANUAL) 14 % (0.0-5.0); EOSINOPHILS % (MANUAL) 2 % (0-4); LYMPHOCYTES % (MANUAL) 7 % (16-48); MONOCYTES % (MANUAL) 6 % (0-11.0); NEUTROPHILS % (MANUAL) 71 (42-76)
[2020-07-08 08:18] LABS: BACTERIA,URINE Many /HPF (None Seen); RBC,URINE 0-2 /HPF (0-2); SQUAMOUS EPITHELIAL CELL,UR Rare /HPF (None Seen); TRIPLE PHOSPHATE CRYSTAL,UR Few /HPF (None Seen)
[2020-07-08] MEDS ORDERED: ONDANSETRON HCL/PF 4 MG/2 ML VIAL IVP PRN (08:30)
[2020-07-08] MEDS ORDERED: ACETAMINOPHEN 650 MG/SUPP.RECT RC PRN (08:30)
[2020-07-08 08:44] LABS: ABG BASE EXCESS -21.1 mmol/L; ABG OXYGEN SATURATION 89.9 % (92.0-98.5); ABG PCO2 52.6 mmHg (35.0-45.0); ABG PH 6.932 (7.350-7.450); AaDO2 220.3 mmHg; COHb 0.3 % (0.5-1.5); MetHb 0.2 % (0.0-1.5); O2Hb 89.5 % (94.0-97.0); PEEP,BG 5 cm H2O; SITE, ABG Left Brachial; VT, ABG 500 mL
[2020-07-08] MEDS ORDERED: PANTOPRAZOLE 40 MG VIAL IV SCH (09:00)
--- NOTE | 2020-07-08 09:01 | NUR ---
ROOM CHANGED TO 250-ICU.
--- NOTE | 2020-07-08 09:10 | NUR ---
CALLED ICU PER UNIT SEC RN NOT AVAILABLE.
[2020-07-08] MEDS ORDERED: PANTOPRAZOLE 40 MG VIAL ONE (09:17)
--- NOTE | 2020-07-08 09:47 | NUR ---
REPORT GIVEN TO ELSY DESIR FOR MALIK.
[2020-07-08 10:52] VITALS: BP 75/48
--- NOTE | 2020-07-08 10:52 | NUR ---
ENGINE TESTER NOTES RECEIVED PATIENT FROM ER, DX SEPSIS, OBTUNDED, WITH TRACH TO MECHANICAL VENT SETTING - AC 15 TV 550 FIO2 50% PEEP 5. NOT IN DISTRESS, DIAPHORETIC. O2 SATURATION AT 96%. AFEBRILE. SINUS RHYTHM ON MONITOR. RAC G 18 AND RT WRIST G 20 IV ACCESS FLUSHES WELL, SITE CLEAR. WITH ONGOING IVF. MUHAMMAD CATH WITH YELLOW CLOUDY URINE. SEE NURSING FLOWSHEETS FOR SKIN ASSESSMENT. PHOTOS TAKEN. SAFETY MEASURES IN PLACE. ISOLATION PRECAUTION OBSERVE WITH COVID TEST PCR PENDING. RAPID TEST COVID NEGATIVE. WILL MONITOR CLOSELY.
[2020-07-08 11:01] VITALS: BP 153/101
[2020-07-08] MEDS ORDERED: VANCOMYCIN 1 GM in IV D5W 250 ML IV ONE (11:30)
[2020-07-08 11:36] LABS: ABG BASE EXCESS -29.6 mmol/L; ABG OXYGEN SATURATION 82.8 % (92.0-98.5); ABG PH 6.769 (7.350-7.450); ABG PO2 69.4 mmHg (75.0-100.0); AaDO2 247.7 mmHg; COHb 0.3 % (0.5-1.5); MetHb 0.4 % (0.0-1.5); O2Hb 82.2 % (94.0-97.0); SITE, ABG Right Femoral; VENT MODE, BG AC 28 550 50% +5
--- NOTE | 2020-07-08 11:37 | NUR ---
RN NOTES RECEIVED NEW ORDERS FROM DR. HESS.
[2020-07-08] MEDS ORDERED: Sodium Bicarbonate 150 MEQ in IV D5W 1,000 ML IV PRN (12:00)
[2020-07-08] MEDS ORDERED: SODIUM BICARBONATE SYR 50 MEQ/50 ML DISP.SYRIN IV ONE (12:00)
--- NOTE | 2020-07-08 12:15 | NUR ---
RN NOTES RESPIRATORY THERAPIST AT BEDSIDE TO CHANGE VENT SETTINGS. FOUND NO PULSE. CODE BLUE ACTIVATED. 1217 - CODE BLUE TEAM ARRIVED. STARTED RESUSCITATION. PRESENT ARE DR. WILLINGHAM ER DOCTOR. DR. KERN. PREETI Cabrera, Rick ANGLIN, MASS[place] ICU CHARGE NURSE, DERICK Agee PRIMARY NURSE, CHANO NURSING SENIOR REVENUE ACCOUNTANT, PHARMACIST - , 1222 - NO BP, NO PULSE. PATIENT , PRONOUNCED BY DR. WILLINGHAM
--- NOTE | 2020-07-08 12:57 | NUR ---
ELSY NOTES LEFT A MESSAGE WITH TRENT HUGHES AT [phone] Addendum: 07/08/20 at 1708 by DERICK HERNANDEZ RN correction: LEFT A MESSAGE TO TRENT CONTRERAS TO CALL BACK THE HOSPITAL.
[2020-07-08] MEDS ORDERED: EPINEPHRINE (1:10,000) SYRINGE 1 MG/10 ML DISP.SYRIN ONE (12:59)
[2020-07-08] MEDS ORDERED: MEROPENEM 1 G in IV NS 0.9% 100 ML IV SCH (13:00)
--- NOTE | 2020-07-08 14:25 | NUR ---
RN NOTES REMAINS PICKED UP BY SECURITY TO [facility]
--- NOTE | 2020-07-08 17:11 | NUR ---
RN NOTES ABLE TO SPEAK WITH TRENT CONTRERAS AND INFORMED HIM ABOUT PATIENT .
--- NOTE | 2020-07-08 17:58 | NUR ---
ADDENDUM RELEASED BY STEEL INSPECTOR KOST.
[2020-07-08] MEDS ORDERED: MEROPENEM 500 MG in IV NS 0.9% 50 ML IV SCH (18:00)
[2020-07-09] MEDS ORDERED: VANCOMYCIN 500 MG in IV D5W 100 ML IV PRN (06:00)
== END 2020-07-08 14:25 | disposition expired | DRG 720 ==
LOC: ER 05:42 → SAOV 08:59 → ICU 09:53
PROVIDERS: ADMIT Internal Medicine; ATTEND Internal Medicine
PROC: 5A1935Z Respiratory Ventilation, Less than 24 Consecutive Hours (ICD-10-PCS; principal; 2020-07-08)
PROC: 5A2204Z Restoration of Cardiac Rhythm, Single (ICD-10-PCS; 2020-07-08)
DX: A41.9 Sepsis, unspecified organism (principal); J96.20 Acute and chronic respiratory failure, unspecified whether with hypoxia or hypercapnia; K21.9 Gastro-esophageal reflux disease without esophagitis; Z93.0 Tracheostomy status; Z93.1 Gastrostomy status; Z79.51 Long term (current) use of inhaled steroids; Z79.899 Other long term (current) drug therapy; R65.20 Severe sepsis without septic shock; J18.9 Pneumonia, unspecified organism; N17.0 Acute kidney failure with tubular necrosis; G93.41 Metabolic encephalopathy; E87.1 Hypo-osmolality and hyponatremia; E87.5 Hyperkalemia; G40.909 Epilepsy, unspecified, not intractable, without status epilepticus; G93.1 Anoxic brain damage, not elsewhere classified; D63.8 Anemia in other chronic diseases classified elsewhere; Z86.73 Personal history of transient ischemic attack (TIA), and cerebral infarction without residual deficits; E86.0 Dehydration
CPT/HCPCS: 31720; 36415; 36600; 71045-TC; 80048-TC; 80076-TC; 81000-TC; 82803-TC; 82962-TC; 83605-TC; 84484-TC; 85025-TC; 85730-TC; 87040-TC; 87086-TC; 87186-TC; 99082-TC; C9113; C9803-CS; G0378; J0171; J2185; J3370; J3490; J7030; J7060; J7070; U0003-CS